=== PATIENT | female | born 1940 | race Caucasian/White ===

== ENCOUNTER → 2016-12-31 | Outpatient (CLI) | payer MEDICARE ==
--- NOTE | 2017-01-01 08:07 | MM ---
Reason for exam: screening (asymptomatic). Last mammogram was performed 1 year ago. History: Patient is postmenopausal. Family history of breast cancer in maternal cousin and breast cancer in maternal aunt. Benign excisional biopsy of the right breast, November 06, 1999. Physical Findings: A clinical breast exam by your physician is recommended on an annual basis and results should be correlated with mammographic findings. MG Screening Mammo w CAD Bilateral CC and MLO view(s) were taken. Prior study comparison: December 29, 2015, bilateral MG screening mammo w CAD. December 27, 2014, bilateral MG screening mammo w CAD. There are scattered fibroglandular densities. No significant changes when compared with prior studies. ASSESSMENT: Benign, BI-RAD 2 RECOMMENDATION: Routine screening mammogram of both breasts in 1 year.
== END | disposition home or self-care (01) ==
LOC: RADMAMWWP 10:11
PROVIDERS: ATTEND Family Medicine
DX: Z12.31 Encounter for screening mammogram for malignant neoplasm of breast (principal); Z80.3 Family history of malignant neoplasm of breast

== ENCOUNTER → 2017-09-30 | Outpatient (CLI) | payer MEDICARE ==
--- NOTE | 2017-09-30 11:12 | MR ---
EXAMINATION TYPE: MR knee LT wo con DATE OF EXAM: 09/30/2017 10:35 AM COMPARISON: NONE HISTORY: Left knee pain TECHNIQUE: Multiplanar, multisequence imaging of the left knee is performed. Patient motion limits ex amination. 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 Microtear is difficult to exclude given patient motion. Anterior horn is grossly intact. LATERAL MENISCUS: Anterior and posterior horns are intact without tear. CRUCIATE LIGAMENTS: The anterior and posterior cruciate ligaments are intact and unremarkable. COLLATERAL LIGAMENTS: The medial collateral ligament and lateral collateral ligament complex are intact and unremarkable. EXTENSOR MECHANISM: Visualized quadriceps and patellar tendons are intact. EFFUSION: No evidence for joint effusion. POPLITEAL CYST: Large septated Valencia's cyst measuring 6.9 cm in craniocaudal dimension by 2.2 cm AP d imension. TRICOMPARTMENT SPACES: Mild degenerative narrowing medial tibiofemoral joint space and patellofemoral joint space. Mild spur formation seen. CARTILAGE: The articular cartilage is maintained without abnormal signal or full-thickness defect. BONE MARROW SIGNAL: No focal abnormal marrow signal is appreciated: OTHER: No additional significant abnormality is appreciated. IMPRESSION: 1. Examination limited by patient motion and resultant artifact. 2. Large septated Valencia's cyst. 3. 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 Microtear is difficult to exclude.
== END | disposition home or self-care (01) ==
LOC: RADMRIMAIN 09:39
PROVIDERS: ATTEND Orthopaedic Surgery
DX: M23.322 Other meniscus derangements, posterior horn of medial meniscus, left knee (principal); M71.22 Synovial cyst of popliteal space [Baker], left knee

== ENCOUNTER 2017-11-14 08:05 | Day surgery (SDC) | payer MEDICARE ==
[2017-11-12 09:25] VITALS: BMI 42.8
--- NOTE | 2017-11-13 17:13 | HP ---
HISTORY AND PHYSICAL REASON FOR ADMISSION: Surgery scheduled for 11/14/2017. HISTORY OF PRESENT ILLNESS: Kathy Gil is a 77-year-old lady seen with progressive left knee pain. We discussed treatment options. She elected to proceed with left knee arthroscopy. Consent regarding procedure was obtained. Preoperative medical clearance was provided by Dr. Holbrook. PAST MEDICAL HISTORY: Hypertension, hyperlipidemia, gastroesophageal reflux disease. PAST SURGICAL HISTORY: Breast biopsy. DAILY MEDICATIONS: Bisoprolol, omeprazole, simvastatin, spironolactone. ALLERGIES: NOVOCAIN. SOCIAL HISTORY: The patient denies current tobacco use. PHYSICAL EXAMINATION: Evaluation of left shoulder extension 0 degrees, flexion 120 degrees. There is a mild effusion present. There is tenderness along the medial joint with a positive medial Padilla's. Ligaments are stable. Hip rotation without pain. Distal neurovascular exam is intact. RADIOGRAPHS: Left knee radiographs revealed moderate osteoarthritis, left knee MRI revealed an abnormal signal throughout the medial meniscus as well as a large Valencia cyst. IMPRESSION: 1. Internal derangement, left knee with medial meniscal tear. 2. Hypertension. 3. Hyperlipidemia. 4. Gastroesophageal reflux disease. PLAN: Left knee arthroscopy with partial meniscectomy and debridement. Surgery scheduled for 11/14/2017. MMODL / IJN: [id number] /
[~2017-11-14 08:05] MED LIST: MORPHINE SULFATE 4 MG/ML SYRINGE IV PRN; ONDANSETRON ODT 4 MG TAB PO ONE; ceFAZolin IN SWFI 2 GM/20 ML SYRINGE IVP ONE
[2017-11-14] MEDS: LACTATED RINGERS 1,000 ML IV SCH ×2 (08:32→08:57)
[2017-11-14] MEDS ORDERED: ONDANSETRON 4 MG/2 ML VIAL IVP ONE ×2 (08:44→10:20)
[2017-11-14] MEDS ORDERED: SUCCINYLCHOLINE CHLORIDE 100 MG/5 ML SYR IV ONE (08:54)
[2017-11-14] MEDS ORDERED: PROPOFOL 10 MG/ML 20 ML VIAL IV ONE (08:54)
[2017-11-14] MEDS ORDERED: MIDAZOLAM 2 MG/2 ML VIAL ONE (08:54)
[2017-11-14] MEDS ORDERED: fentaNYL (PF) 50 MCG/ML 2 ML AMP ONE (08:54)
[2017-11-14] MEDS ORDERED: GLYCOPYRROLATE 0.2 MG/ML 2 ML VIAL ONE (08:54)
[2017-11-14] MEDS ORDERED: BUPIVACAINE (PF) 0.25% 30 ML VIAL SQ ONE (09:27)
--- NOTE | 2017-11-14 09:57 | P.OP ---
Date of Procedure: 11/14/17 Preoperative Diagnosis: Internal derangement left knee Postoperative Diagnosis: 1. Tear medial and lateral meniscus left knee 2. Grade 2/3 chondromalacia medial femoral condyle left knee 3. Grade 2/3 chondromalacia patella left knee 4. Reactive synovitis medial and suprapatellar compartments left knee Procedure(s) Performed: 1. Arthroscopic partial medial and lateral meniscectomy left knee 2. Arthroscopic chondroplasty medial femoral condyle left knee 3. Arthroscopic chondroplasty patella left knee 4. Arthroscopic partial synovectomy medial and suprapatellar compartments left knee Anesthesia: CARRIA, local Surgeon: Jose Toure Estimated Blood Loss (ml): 9 Pathology: none sent Condition: stable Disposition: PACU Indications for Procedure: 69-year-old lady seen with progressive left knee pain. After options regarding treatment were discussed, she elected to proceed with arthroscopy. Operative Findings: see description of procedure Description of Procedure: Patient was taken to the operative suite. Patient underwent a general anesthetic by the department of anesthesia. Patient was given preoperative antibiotics. The left lower extremity was placed in a well-padded arthroscopic leg petit. The left leg was prepped and draped in the normal sterile orthopedic fashion. A lateral parapatellar and suprapatellar incision was made. Trochars were inserted. Arthroscopy was initiated. Suprapatellar pouch revealed diffuse thick reactive synovitis. The patellofemoral joint appeared to articulate congruently. There was grade 2/3 chondromalacia of the patella with some osteochondral tears present. The scope was guided into the medial gutter. No loose bodies or plica were identified. The scope was then guided into the medial compartment. A medial parapatellar incision was made. Trocar inserted followed by probe. There was a tear involving the posterior horn medial meniscus. There were grade 2/3 chondromalacia changes of the medial femoral condyle with osteochondral tears present. There was reactive synovitis anteriorly. I performed a partial medial meniscectomy down to stable tissue. I performed a chondroplasty of the medial femoral condyle down to stable tissue. I performed a partial synovectomy. The residual meniscus was probed and found to be stable. The residual osteochondral surface of the medial femoral condyle was stable. Scope and probe were then guided into the intercondylar notch. Cruciates were identified, probed and found to be stable. The scope and probe were then guided into lateral compartment. There was a tear involving the posterior horn as well as midbody lateral meniscus. There were grade 1 chondromalacia changes of the lateral compartment. I performed a partial lateral meniscectomy down to stable tissue. The residual meniscus was found to be stable. The scope was in guided back into the suprapatellar compartment. I introduced a motorized shaver into the super patellar compartment. I debrided piecemeal fragments of meniscus I encountered. I performed a chondroplasty of the patella. I performed a partial synovectomy. The shaver was removed. Instruments were now removed from the joint. The joint was infiltrated with .25% Marcaine. Steri-Strips were applied to the portal sites. Sterile dressings were applied. The patient was placed into a NIDA hose. No tourniquet was utilized. The patient was awakened, transferred to a bed and taken to recovery stable satisfactory condition.
[2017-11-14 10:06] VITALS: TEMP 96.8
[2017-11-14] MEDS ORDERED: fentaNYL (PF) 50 MCG/ML 2 ML AMP IVP ONE (10:36)
[2017-11-14 11:03] VITALS: RESP 18
[2017-11-14 11:29] VITALS: BP 141/63; PULSE 66
== END 2017-11-14 12:24 | disposition home or self-care (01) ==
LOC: OR 08:05
PROVIDERS: ATTEND Orthopaedic Surgery
DX: M23.322 Other meniscus derangements, posterior horn of medial meniscus, left knee (principal); M23.352 Other meniscus derangements, posterior horn of lateral meniscus, left knee; M65.862 Other synovitis and tenosynovitis, left lower leg; M85.80 Other specified disorders of bone density and structure, unspecified site; I10 Essential (primary) hypertension; E78.5 Hyperlipidemia, unspecified; K21.9 Gastro-esophageal reflux disease without esophagitis; M22.42 Chondromalacia patellae, left knee; Z79.899 Other long term (current) drug therapy; Z88.4 Allergy status to anesthetic agent
CPT/HCPCS: 84132; 29880; J2250; J2270; J2405; J3010; J0330; J2704; J0690

== ENCOUNTER → 2018-03-18 | Outpatient (CLI) | payer MEDICARE ==
--- NOTE | 2018-03-20 13:13 | MM ---
Reason for exam: screening (asymptomatic). Last mammogram was performed 1 year and 2 months ago. History: Patient is postmenopausal. Family history of breast cancer in maternal cousin and breast cancer in maternal aunt. Benign excisional biopsy of the right breast, November 06, 1999. Physical Findings: A clinical breast exam by your physician is recommended on an annual basis and results should be correlated with mammographic findings. MG Screening Mammo w CAD Bilateral CC and MLO view(s) were taken. Prior study comparison: December 31, 2016, bilateral MG screening mammo w CAD. December 29, 2015, bilateral MG screening mammo w CAD. There are scattered fibroglandular densities. No significant changes when compared with prior studies. ASSESSMENT: Negative, BI-RAD 1 RECOMMENDATION: Routine screening mammogram of both breasts in 1 year.
== END | disposition home or self-care (01) ==
LOC: RADMAMWWP 08:42
PROVIDERS: ATTEND Family Medicine
DX: Z12.31 Encounter for screening mammogram for malignant neoplasm of breast (principal)
CPT/HCPCS: 77067

== ENCOUNTER → 2019-03-19 | Outpatient (CLI) | payer MEDICARE ==
--- NOTE | 2019-03-19 10:28 | MM ---
Reason for exam: screening (asymptomatic). Last mammogram was performed 1 year ago. History: Patient is postmenopausal. Family history of breast cancer in maternal cousin and breast cancer in maternal aunt. Benign excisional biopsy of the right breast, November 06, 1999. Took hormonal contraceptives for 3 years. Physical Findings: A clinical breast exam by your physician is recommended on an annual basis and results should be correlated with mammographic findings. MG Screening Mammo w CAD Bilateral CC and MLO view(s) were taken. Prior study comparison: March 18, 2018, bilateral MG screening mammo w CAD. December 31, 2016, bilateral MG screening mammo w CAD. There are scattered fibroglandular densities. There are benign appearing round calcifications bilaterally. There is no discrete abnormality. ASSESSMENT: Benign, BI-RAD 2 RECOMMENDATION: Routine screening mammogram of both breasts in 1 year.
== END | disposition home or self-care (01) ==
LOC: RADMAMWWP 08:43
PROVIDERS: ATTEND Family Medicine
DX: Z12.31 Encounter for screening mammogram for malignant neoplasm of breast (principal)
CPT/HCPCS: 77067

== ENCOUNTER → 2020-04-29 | Outpatient (CLI) | payer MEDICARE ==
--- NOTE | 2020-05-03 08:11 | MM ---
Reason for exam: screening (asymptomatic). Last mammogram was performed 1 year and 1 month ago. History: Patient is postmenopausal. Family history of breast cancer in maternal cousin and breast cancer in maternal aunt. Benign excisional biopsy of the right breast, November 06, 1999. Took hormonal contraceptives for 3 years. Physical Findings: A clinical breast exam by your physician is recommended on an annual basis and results should be correlated with mammographic findings. MG Screening Mammo w CAD Bilateral CC and MLO view(s) were taken. Prior study comparison: March 19, 2019, bilateral MG screening mammo w CAD. March 18, 2018, bilateral MG screening mammo w CAD. There are scattered fibroglandular densities. No significant changes when compared with prior studies. ASSESSMENT: Negative, BI-RAD 1 RECOMMENDATION: Routine screening mammogram of both breasts in 1 year.
== END | disposition home or self-care (01) ==
LOC: RADMAMWWP 13:06
PROVIDERS: ATTEND Family Medicine
DX: Z12.31 Encounter for screening mammogram for malignant neoplasm of breast (principal)
CPT/HCPCS: 77067

== ENCOUNTER → 2021-06-02 | Outpatient (CLI) | payer MEDICARE ==
--- NOTE | 2021-06-05 12:46 | MM ---
Reason for exam: screening (asymptomatic). Last mammogram was performed 1 year and 1 month ago. History: Patient is postmenopausal. Family history of breast cancer in maternal cousin and breast cancer in maternal aunt. Benign excisional biopsy of the right breast, November 06, 1999. Took hormonal contraceptives for 3 years. Physical Findings: A clinical breast exam by your physician is recommended on an annual basis and results should be correlated with mammographic findings. MG Screening Mammo w CAD Bilateral CC and MLO view(s) were taken. Prior study comparison: April 29, 2020, bilateral MG screening mammo w CAD. March 19, 2019, bilateral MG screening mammo w CAD. The breast tissue is heterogeneously dense. This may lower the sensitivity of mammography. Stable benign calcifications. There is no discrete abnormality. No significant changes when compared with prior studies. ASSESSMENT: Benign, BI-RAD 2 RECOMMENDATION: Routine screening mammogram of both breasts in 1 year.
== END | disposition home or self-care (01) ==
LOC: RADMAMWWP 16:10
PROVIDERS: ATTEND Family Medicine
DX: Z12.31 Encounter for screening mammogram for malignant neoplasm of breast (principal); Z78.0 Asymptomatic menopausal state; Z80.3 Family history of malignant neoplasm of breast
CPT/HCPCS: 77067

== ENCOUNTER → 2021-08-18 | Outpatient (CLI) | payer MEDICARE | END | disposition home or self-care (01) | LOC: RADCTMAIN 16:42 | PROVIDERS: ATTEND Family Medicine | DX: R06.4 Hyperventilation (principal) | CPT/HCPCS: 82565; 84520 ==

== ENCOUNTER 2021-10-16 14:18 | Inpatient (IN) | payer MEDICARE ==
[2021-10-16] MEDS ORDERED: IPRATROPIUM-ALBUTEROL 3 ML NEB INHALATION STA (14:52)
--- NOTE | 2021-10-16 14:55 | ED ---
General Adult HPI - General Chief complaint: Shortness of Breath Stated complaint: Cough, Shortness of Breath Time Seen by Provider: 10/16/21 14:35 Source: patient, RN notes reviewed, old records reviewed Mode of arrival: ambulatory Limitations: no limitations - History of Present Illness Initial comments: This is an 81-year-old female who comes in complaining of having COVID and has been coughing and becoming more short of breath per patient states her symptoms started weeks ago she was tested positive last Saturday and the symptoms have progressed over the weekend. Patient denies any sputum production. Patient denies any chest pain or palpitations. Patient denies feeling sick. Patient denies any aches patient denies abdominal pain patient denies nausea vomiting diarrhea. Patient denies headache patient denies numbness weakness per patient denies any lightheadedness or dizziness. - Related Data Home Medications Medication Instructions Recorded Confirmed Bisoprolol-Hctz 10-6.25 mg [Ziac 1 tab PO DAILY 11/07/14 11/14/17 10-6.25 MG] Omeprazole [PriLOSEC] 40 mg PO DAILY 11/07/14 11/14/17 Simvastatin [Zocor] 40 mg PO DAILY 11/07/14 11/14/17 Spironolactone 1 tab PO DAILY 11/07/14 11/14/17 Ascorbic Acid [Vitamin C] 500 mg PO DAILY 11/12/17 11/14/17 Calcium Carbonate [Calcium] 1,200 mg PO DAILY 11/12/17 11/14/17 Cholecalciferol [Vitamin D3] 5,000 unit PO DAILY 11/12/17 11/14/17 Cyanocobalamin (Vitamin B-12) 1,000 mcg PO DAILY 11/12/17 11/14/17 [Vitamin B-12] Folic Acid 0.4 mg PO DAILY 11/12/17 11/14/17 Garlic 1 each PO DAILY 11/12/17 11/14/17 Healthy Eyes Vitamin 1 tab PO DAILY 11/12/17 11/14/17 Magnesium Oxide [Cervantes] 500 mg PO DAILY 11/12/17 11/14/17 [place]-3 Fatty Acids/Fish Oil [Fish 1 each PO DAILY 11/12/17 11/14/17 Oil 1,000 mg Softgel] Ranitidine HCl [Zantac] 300 mg PO HS 11/12/17 11/14/17 flaxseed oiL [[place]-3 Flaxseed Oil] 1,000 mg PO DAILY 11/12/17 11/14/17 Previous Rx's Medication Instructions Recorded traMADol HCl [Ultram] 50 mg PO Q6H PRN #20 tab 11/14/17 Allergies Allergy/AdvReac Type Severity Reaction Status Date / Time procaine [From Novocain] Allergy Anaphylaxis Verified 10/16/21 14:32 Review of Systems ROS Statement: Those systems with pertinent positive or pertinent negative responses have been documented in the HPI. ROS Other: All systems not noted in ROS Statement are negative. Past Medical History Past Medical History: GERD/Reflux, Hyperlipidemia, Hypertension Additional Past Medical History / Comment(s): Hx "racing heart" History of Any Multi-Drug Resistant Organisms: None Reported Past Surgical History: No Surgical Hx Reported Additional Past Surgical History / Comment(s): D&C, colonoscopies,rt breast biopsy Past Anesthesia/Blood Transfusion Reactions: Motion Sickness Past Psychological History: No Psychological Hx Reported Smoking Status: Never smoker Past Alcohol Use History: None Reported Past Drug Use History: None Reported - Past Family History Daughter(s) Family Medical History: Cancer Additional Family Medical History / Comment(s): leukemia General Exam - General Exam Comments Initial Comments: GENERAL: Patient is well-developed and well-nourished. Patient is nontoxic and well- hydrated and is in mild distress. ENT: Neck is soft and supple. No significant lymphadenopathy is noted. Oropharynx is clear. Moist mucous membranes. Neck has full range of motion without eliciting any pain. EYES: The sclera were anicteric and conjunctiva were pink and moist. Extraocular movements were intact and pupils were equal round and reactive to light. Eyelids were unremarkable. PULMONARY: Patient has expiratory wheezing. CARDIOVASCULAR: There is a regular rate and rhythm without any murmurs gallops or rubs. ABDOMEN: Soft and nontender with normal bowel sounds. No palpable organomegaly was noted. There is no palpable pulsatile mass. SKIN: Skin is clear with no lesions or rashes and otherwise unremarkable. NEUROLOGIC: Patient is alert and oriented x3. Cranial nerves II through XII are grossly intact. Motor and sensory are also intact. Normal speech, volume and content. Symmetrical smile. MUSCULOSKELETAL: Normal extremities with adequate strength and full range of motion. No lower extremity swelling or edema. No calf tenderness. LYMPHATICS: No significant lymphadenopathy is noted PSYCHIATRIC: Normal psychiatric evaluation. Limitations: no limitations Course Vital Signs 10/16/21 14:32 Temperature 97.1 F L Pulse Rate 119 H Respiratory 20 Rate Blood Pressure 160/68 O2 Sat by Pulse 90 L Oximetry Medical Decision Making - Medical Decision Making Patient has an infiltrate on x-ray consistent with pneumonia. Patient will get cultures done lactic acid and antibiotics will be started. I contacted [facility] hospitalist agreed to admit the patient admitted the patient wrote admitting orders. - Lab Data Result diagrams: 10/16/21 15:06 10/16/21 15:06 Lab Results 10/16/21 10/16/21 Range/Units 15:06 15:06 WBC 14.1 H (3.8-10.6) k/uL RBC 4.19 (3.80-5.40) m/uL Hgb 13.9 (11.4-16.0) gm/dL Hct 41.1 (34.0-46.0) % MCV 98.0 (80.0-100.0) fL MCH 33.2 (25.0-35.0) pg MCHC 33.8 (31.0-37.0) g/dL RDW 12.6 (11.5-15.5) % Plt Count 288 (150-450) k/uL MPV 9.0 Neutrophils % 88 % Lymphocytes % 8 % Monocytes % 3 % Eosinophils % 0 % Basophils % 0 % Neutrophils # 12.4 H (1.3-7.7) k/uL Lymphocytes # 1.1 (1.0-4.8) k/uL Monocytes # 0.4 (0-1.0) k/uL Eosinophils # 0.0 (0-0.7) k/uL Basophils # 0.0 (0-0.2) k/uL Sodium 129 L (137-145) mmol/L Potassium 4.8 (3.5-5.1) mmol/L Chloride 95 L (98-107) mmol/L Carbon Dioxide 23 (22-30) mmol/L Anion Gap 11 mmol/L BUN 24 H (7-17) mg/dL Creatinine 1.17 H (0.52-1.04) mg/dL Est GFR (CKD-EPI)AfAm 50 (>60 ml/min/1.73 sqM) Est GFR (CKD-EPI)NonAf 44 (>60 ml/min/1.73 sqM) Glucose 152 H (74-99) mg/dL Calcium 9.8 (8.4-10.2) mg/dL Total Bilirubin 1.0 (0.2-1.3) mg/dL AST 52 H (14-36) U/L ALT 49 H (4-34) U/L Alkaline Phosphatase 162 H (38-126) U/L Total Protein 7.7 (6.3-8.2) g/dL Albumin 3.9 (3.5-5.0) g/dL Disposition Clinical Impression: Pneumonia, Hyponatremia, COVID Disposition: ADMITTED IP TO THIS HOSP Referrals: None,Stated [Primary Care Provider] - 1-2 days Time of Disposition: 15:45
[2021-10-16 15:14] LABS: Basophils % (A) 0 %; Eosinophils % (A) 0 %; HCT 41.1 % (34.0-46.0); HGB 13.9 gm/dL (11.4-16.0); Lymphocytes # (A) 1.1 k/uL (1.0-4.8); Lymphocytes % (A) 8 %; MCH 33.2 pg (25.0-35.0); MCHC 33.8 g/dL (31.0-37.0); Monocytes # (A) 0.4 k/uL (0-1.0); Monocytes % (A) 3 %; Neutrophils # (A) 12.4 k/uL (1.3-7.7); Neutrophils % (A) 88 %; Platelet Count 288 k/uL (150-450); RBC 4.19 m/uL (3.80-5.40); RDW 12.6 % (11.5-15.5); WBC 14.1 k/uL (3.8-10.6)
[2021-10-16] MEDS ORDERED: dexAMETHasone 2 MG TAB PO STA (15:14)
[2021-10-16 15:26] LABS: Albumin 3.9 g/dL (3.5-5.0); Calcium 9.8 mg/dL (8.4-10.2); Potassium 4.8 mmol/L (3.5-5.1); Total Protein 7.7 g/dL (6.3-8.2)
[2021-10-16] MEDS ORDERED: ALBUTEROL HFA INHALER INHALATION STA (15:37)
--- NOTE | 2021-10-16 15:37 | XR ---
EXAMINATION TYPE: XR chest 2V DATE OF EXAM: 10/16/2021 COMPARISON: 11/07/2014 HISTORY: Shortness of breath TECHNIQUE: Frontal and lateral views of the chest are obtained. FINDINGS: Scattered senescent parenchymal changes noted. Hyperinflation compatible with COPD. Right lower lobe patchy density may reflect developing infiltrate. Correlate clinically and progress studies are recommended. Heart size is stable. Mediastinal structures are stable and grossly unremarkable. No evidence for hilar prominence. Degenerative changes dorsal spine. IMPRESSION: 1. Right lower lobe patchy density may reflect developing infiltrate. Correlate clinically and progre ss studies are recommended.
[2021-10-16] MEDS ORDERED: SODIUM CHLORIDE 0.9% 1,000 ML IV ONE (15:45)
[2021-10-16] MEDS ORDERED: PNEUMONIA PROTOCOL UTILIZED 1 EACH MISC PO PRN (15:46)
[2021-10-16] MEDS ORDERED: AZITHROMYCIN 500 MG in SODIUM CHLORIDE 0.9% 250 ML IVPB STA (15:46)
--- NOTE | 2021-10-17 08:28 | XR ---
EXAMINATION TYPE: XR chest 2V DATE OF EXAM: 10/17/2021 COMPARISON: 10/16/2021 TECHNIQUE: PA and lateral views submitted. HISTORY: Follow-up pneumonia, cough FINDINGS: Improving right lower lobe area drainage with additional subsegmental infiltrate in the left lung bas e. Heart enlarged and there is underlying COPD. No pneumothorax. Diffuse osteopenia. Degenerative argelia nge of the spine. Arthropathy shoulders. Atherosclerotic change aorta. IMPRESSION: 1. Bilateral lower lobe infiltrate with slight improvement on the right. 2. COPD.
[2021-10-17] MEDS ORDERED: ALBUTEROL NEBULIZED 2.5 MG/3 ML INHALATION PRN (09:46)
[2021-10-17] MEDS ORDERED: PANTOPRAZOLE 40 MG/10 ML VIAL IVP SCH (10:00)
[2021-10-17] MEDS ORDERED: ENOXAPARIN 40 MG/0.4 ML SYRINGE SQ SCH (10:00)
[2021-10-17] MEDS: AZITHROMYCIN 500 MG TAB PO SCH (10:16)
--- NOTE | 2021-10-17 10:26 | CT ---
EXAMINATION TYPE: CT chest wo con DATE OF EXAM: 10/17/2021 INDICATION: RLL atelectasis vs. Pneumonia CT DLP: 382.9 mGy.cm Automated Exposure Control for Dose Reduction was Utilized. TECHNIQUE AND CONTRAST: CT scan of the chest without IV contrast administration. COMPARISON: CT dated 08/28/2021 FINDINGS: Newly seen thick atelectasis/consolidation in the left lower lobe with air bronchogram within, with s maller atelectasis in the right lower lobe. Associated loss of volume of the left lower lobe. This co uld be related to acute infection/pneumonia or recurrent aspiration however underlying lesion can't b e excluded. Follow-up to complete resolution is advised. Grossly unremarkable remainder of the lungs. Patent trachea and main bronchi. No pleural or pericardi al effusion. Cardiomegaly with biatrial enlargement, please correlate with echocardiographic results. Scattered arterial and coronary atherosclerotic calcifications. No pathologically enlarged lymph nod es in the chest. Dilated ascending aorta measuring 3.6 cm. The pulmonary trunk measures 3 cm. Atrophic pancreas. Bilat eral perinephric fluid, nonspecific. Degenerative changes of the thoracic and upper lumbar spine. L1 vertebral body hemangioma. IMPRESSION: Bilateral lower lobe thick atelectasis/consolidation more on the left side as described above. They c ould be related to pneumonia or recurrent aspiration however underlying lesion cannot be excluded, pl ease correlate clinically. Follow-up to complete resolution is advised in 6-8 weeks. Other incidental findings as described above.
[2021-10-17] MEDS ORDERED: ENOXAPARIN 30 MG/0.3 ML SYRINGE SQ SCH (10:30)
[2021-10-17 10:48] LABS: Basophils % (A) 0 %; Eosinophils % (A) 0 %; HCT 41.4 % (34.0-46.0); HGB 13.4 gm/dL (11.4-16.0); Lymphocytes # (A) 1.7 k/uL (1.0-4.8); Lymphocytes % (A) 10 %; MCH 32.6 pg (25.0-35.0); MCHC 32.3 g/dL (31.0-37.0); Mean Platelet Volume 9.7; Monocytes # (A) 0.7 k/uL (0-1.0); Monocytes % (A) 4 %; Neutrophils # (A) 14.3 k/uL (1.3-7.7); Neutrophils % (A) 85 %; Platelet Count 266 k/uL (150-450); RDW 12.2 % (11.5-15.5); WBC 16.8 k/uL (3.8-10.6)
[2021-10-17] MEDS ORDERED: ALBUTEROL HFA INHALER INHALATION PRN (10:53)
[2021-10-17 11:05] LABS: ALT 43 U/L (4-34); AST 41 U/L (14-36); African American GFR (CKD) 58 (>60 ml/min/1.73 sqM); Albumin 3.5 g/dL (3.5-5.0); Alkaline Phosphatase 141 U/L (38-126); Anion Gap 11 mmol/L; Blood Urea Nitrogen 23 mg/dL (7-17); Calcium 9.7 mg/dL (8.4-10.2); Carbon Dioxide 25 mmol/L (22-30); Chloride 101 mmol/L (98-107); Globulin 3.5 g/dL; Glucose 163 mg/dL (74-99); Non-African American GFR(CKD) 50 (>60 ml/min/1.73 sqM); Potassium 4.5 mmol/L (3.5-5.1); Sodium 137 mmol/L (137-145); Total Bilirubin 0.6 mg/dL (0.2-1.3)
--- NOTE | 2021-10-17 11:39 | P.CNPUL ---
History of Present Illness Consult date: 10/17/21 Requesting physician: Gamaliel Padilla Reason for consult: dyspnea, abnormal CXR/CT Chief complaint: Shortness of breath, cough History of present illness: This is an 81-year-old female patient with a known history of hypertension, hyperlipidemia and gastroesophageal reflux disease. Nonsmoker. One week ago ago the patient developed increasing shortness of breath, cough congestion and reportedly tested positive for COVID-19 at a outpatient clinic on 10/11/2021. She was initiated on prednisone and vitamin supplements. Today her symptoms worsened and she presented here to the emergency room for the same. She denied any nausea, vomiting or diarrhea. No dizziness or lightheadedness. No sputum production. No fever or chills. No body aches. Chest x-ray revealed bilateral lower lobe infiltrates and evidence of COPD. Computed tomography scan of the chest revealed bilateral lower lobe chronic atelectasis/consolidation more so on the left. Possibly related to pneumonia or recurrent aspiration however and underlying lesion cannot be excluded. White count 16.8. Hemoglobin 13.4. Sodi um 137. Potassium 4.5. Bicarb 25. BUN 23. Creatinine 1.04. Glucose 163. AST 41. ALT 43. Pro-calcitonin 0.09. [place] virus by PCR not detected here. She's been initiated on ceftriaxone and azithromycin along with vitamin supplements and Lovenox. Review of Systems REVIEW OF SYSTEMS: CONSTITUTIONAL: Denies any recent significant weight loss or weight gain. EYES: Denies change in vision. EARS, NOSE, MOUTH, THROAT: Denies headaches, denies sore throat. CARDIOVASCULAR: Denies chest pain, palpitations or syncopal episodes. RESPIRATORY: Positive for shortness of breath, cough, congestion no hemoptysis. GASTROINTESTINAL: Denies change in appetite, denies abdominal pain GENITOURINARY: Denies hematuria, denies infections. MUSKULOSKELETAL: Denies pain, denies swelling. INTEGUMENTARY: Denies rash, denies eczema. NEUROLOGICAL: Denies recent memory loss, no recent seizure activity. PSYCHIATRIC: Denies anxiety, denies depression. HEMATOLOGIC/LYMPHATIC: Denies anemia, denies enlarged lymph nodes. Past Medical History Past Medical History: GERD/Reflux, Hyperlipidemia, Hypertension Additional Past Medical History / Comment(s): Hx "racing heart" History of Any Multi-Drug Resistant Organisms: None Reported Past Surgical History: No Surgical Hx Reported Additional Past Surgical History / Comment(s): D&C, colonoscopies,rt breast biopsy Past Anesthesia/Blood Transfusion Reactions: Motion Sickness Smoking Status: Never smoker - Past Family History Daughter(s) Family Medical History: Cancer Additional Family Medical History / Comment(s): leukemia Medications and Allergies Home Medications Medication Instructions Recorded Confirmed Type Omeprazole [PriLOSEC] 40 mg PO DAILY 11/07/14 10/16/21 History Simvastatin [Zocor] 40 mg PO DAILY 11/07/14 10/16/21 History Spironolactone 50 mg PO DAILY 11/07/14 10/16/21 History Ascorbic Acid [Vitamin C] 500 mg PO DAILY 11/12/17 10/16/21 History Cholecalciferol [Vitamin D3] 1,000 unit PO DAILY 11/12/17 10/16/21 History Cyanocobalamin (Vitamin B-12) 1,000 mcg PO DAILY 11/12/17 10/16/21 History [Vitamin B-12] Folic Acid 0.4 mg PO DAILY 11/12/17 10/16/21 History Garlic 1 tab PO DAILY 11/12/17 10/16/21 History Healthy Eyes Vitamin 1 tab PO DAILY 11/12/17 10/16/21 History Magnesium Oxide [Cervantes] 500 mg PO DAILY 11/12/17 10/16/21 History [place]-3 Fatty Acids/Fish Oil [Fish 1 cap PO DAILY 11/12/17 10/16/21 History Oil 1,000 mg Softgel] flaxseed oiL [[place]-3 Flaxseed Oil] 1,000 mg PO DAILY 11/12/17 10/16/21 History Albuterol Sulfate [Proventil Hfa] 1 puff INHALATION RT-DAILY PRN 10/16/21 10/16/21 History Bisoprolol Fumarate [Zebeta] 10 mg PO BID 10/16/21 10/16/21 History Calcium Carbonate [Tums] 500 mg PO DAILY 10/16/21 10/16/21 History Montelukast [Singulair] 10 mg PO DAILY 10/16/21 10/16/21 History Vitamin C/Biotin [Hair, Skin and 1 tab PO DAILY 10/16/21 10/16/21 History Nails Chew] predniSONE [Deltasone] 20 mg PO DAILY 10/16/21 10/16/21 History Allergies Allergy/AdvReac Type Severity Reaction Status Date / Time procaine [From Novocain] Allergy Anaphylaxis Verified 10/16/21 16:31 Physical Exam Vitals: Vital Signs Temp Pulse Pulse Resp BP BP Pulse Ox 10/17/21 10:00 72 18 120/92 98 10/17/21 06:18 98.3 F 93 20 128/64 95 10/16/21 19:29 98.2 F 94 20 120/78 95 10/16/21 14:32 97.1 F L 119 H 20 160/68 90 L Intake and Output 10/16/21 10/17/21 10/17/21 22:59 06:59 14:59 Intake Total 240 Balance 240 Intake: Oral 240 Other: Voiding Method Toilet # Voids 1 Weight 81.193 kg GENERAL EXAM: Alert, pleasant 81-year-old female patient, on room air, comfortable in no apparent distress. HEAD: Normocephalic. EYES: Normal reaction of pupils, equal size. NOSE: Clear with pink turbinates. THROAT: No erythema or exudates. NECK: No masses, no JVD. CHEST: No chest wall deformity. LUNGS: Equal air entry with bilateral scattered rhonchi more so on the left. CVS: S1 and S2 normal with no audible murmur, regular rhythm. ABDOMEN: No hepatosplenomegaly, normal bowel sounds, no guarding or rigidity. SPINE: No scoliosis or deformity SKIN: No rashes CENTRAL NERVOUS SYSTEM: No focal deficits, tone is normal in all 4 extremities. EXTREMITIES: There is no peripheral edema. No clubbing, no cyanosis. Peripheral pulses are intact. Results - Laboratory Findings CBC and BMP: 10/17/21 10:09 10/17/21 10:09 Abnormal lab findings: Abnormal Labs 10/16/21 10/16/21 10/17/21 15:06 15:06 10:09 WBC 14.1 H 16.8 H MCV 101.0 H Neutrophils # 12.4 H 14.3 H Sodium 129 L Chloride 95 L BUN 24 H Creatinine 1.17 H Glucose 152 H AST 52 H ALT 49 H Alkaline Phosphatase 162 H 10/17/21 10:09 WBC MCV Neutrophils # Sodium Chloride BUN 23 H Creatinine Glucose 163 H AST 41 H ALT 43 H Alkaline Phosphatase 141 H - Diagnostic Findings Chest x-ray: image reviewed CT scan - chest: image reviewed Assessment and Plan Assessment: 1 Dyspnea secondary to suspected acute community-acquired pneumonia more so on the left lung base. Neoplasm cannot be totally excluded. Possible previous COVID-19 infection. COVID-19 by PCR negative here. 2 Leukocytosis secondary to above 3 Hyponatremia, recovered currently 137 4 Acute renal failure, recovered current creatinine 1.05 5 Mild transaminitis 6 Hypertension 7 Hyperlipidemia 8 Gastroesophageal reflux disease Plan: The patient was seen and evaluated Chest x-ray, CAT scans and labs reviewed Suspect underlying pneumonia Continue ceftriaxone and azithromycin Continue bronchodilators, IV Solu-Medrol Lovenox for DVT prophylaxis Check inflammatory markers We will continue to follow and make further recommendations based on her clinical status I have personally seen and examined the patient, performed the documentation and the assessment and plan as written. Number of minutes spent on the visit: 20.
[2021-10-17] MEDS: ASCORBIC ACID 500 MG TAB PO SCH (11:42)
[2021-10-17] MEDS: CYANOCOBALAMIN 500 MCG TAB PO SCH (11:42)
[2021-10-17] MEDS: CHOLECALCIFEROL 25 MCG (1000 IU) TABLET PO SCH (11:42)
[2021-10-17] MEDS: MONTELUKAST 10 MG TAB PO SCH (11:42)
[2021-10-17] MEDS: FOLIC ACID 1 MG TAB PO SCH (11:43)
[2021-10-17 12:10] LABS: C Reactive Protein 4.8 mg/dL (<1.0)
[2021-10-17] MEDS ORDERED: HEPARIN SODIUM 1,000 UN/ML (10ML VL) IV PRN (14:02)
[2021-10-17] MEDS ORDERED: HEPARIN SODIUM 1,000 UN/ML (10ML VL) IV ONE (14:02)
--- NOTE | 2021-10-17 14:14 | P.HPIM ---
History of Present Illness H&P Date: 10/17/21 This is an 81-year-old female presents to the emergency room with complaints of increased shortness of breath. is at the bedside. Patient has symptoms ongoing for the last couple weeks, she was tested positive for Covid last Saturday with interval progression of symptoms. Patient was started on an oral steroid taper with last doing being today from the walk in clinic. Chest x-ray on admission shows right lower lobe patchy density may reflect developing infiltrate. Follow-up chest x-ray in the morning shows slight improvement of infiltrate, COPD. Patient followed with Dr Kimberlee Holbrook in the primary office, states she has not been in since August and at that time states she had a chest xray and CT done which showed a nodule which there has been no further work up. Patient states she is a never smoker, no alcohol use. She denies history of heart failure, states she does have a heart arrythmia, denies history of atrial fibrillation. Patient is somewhat of a poor historian. Patient is currently working in the school setting. White count 14.1 admission, sodium 129, BUN 24, creatinine 1.17, glucose 152, elevated liver enzymes. Covid NOT detected this admission. Chronic medical conditions include GERD, hyperlipidemia, hypertension, racing heart. Patient is a never smoker. Patient currently afebrile, heart rate is slightly elevated at 93 with an episode of tachycardia 118, 95% on room air. Patient was admitted to the hospital with consults placed to pulmonary services. Patient received a 1 Liter fluid bolus, received a dose of IV azithromycin, IV Rocephin, also one-time dose of oral dexamethasone. -EKG requested which shows atrial fibrillation. Home medication includes bisoprolol, not on any anticoagulation. Consultation requested to cardiology for further evaluation. -Chest CT completed today shows bilateral lower lobe atelectasis/consolidation when the left side as described above. This could be related to pneumonia or recent aspiration of her underlying lesion cannot be excluded. Recommend follow-up advised in 6-8 weeks. REVIEW OF SYSTEMS: CONSTITUTIONAL: No fever, no malaise, reports fatigue. HEENT: No recent visual problems or hearing problems. Denied any sore throat. CARDIOVASCULAR: No chest pain, orthopnea, PND, no palpitations, no syncope. PULMONARY: Reports shortness of breath, reports occasional cough with white to yellow sputum. GASTROINTESTINAL: No diarrhea, no nausea, no vomiting, no abdominal pain. NEUROLOGICAL: No headaches, no weakness, no numbness. HEMATOLOGICAL: Denies any bleeding or petechiae. GENITOURINARY: Denies any burning micturition, frequency, or urgency. MUSCULOSKELETAL/RHEUMATOLOGICAL: Denies any joint pain, swelling, or any muscle pain. ENDOCRINE: Denies any polyuria or polydipsia. The rest of the 14-point review of systems is negative. PHYSICAL EXAMINATION: GENERAL: The patient is alert and oriented x3, not in any acute distress. Well developed, well nourished. HEENT: Pupils are round and equally reacting to light. EOMI. No scleral icterus. No conjunctival pallor. Normocephalic, atraumatic. No pharyngeal erythema. No thyromegaly. CARDIOVASCULAR: S1 and S2 present. Irregular rate and rhythm, tachycardic. PULMONARY: Chest is clear to auscultation, no wheezing or crackles. ABDOMEN: Soft, nontender, nondistended, normoactive bowel sounds. No palpable organomegaly. MUSCULOSKELETAL: No joint swelling or deformity. EXTREMITIES: No cyanosis, clubbing, or pedal edema. NEUROLOGICAL: Gross neurological examination did not reveal any focal deficits. SKIN: No rashes. Assessment and plan Assessment 1 Shortness of breath with possible right lower lobe pneumonia. Patient with self reported recent Covid infection, COVID currently showing negative this admission. She has been on an oral steroid taper outpatient and vitamins. Procalcitonin is negative at 0.09, chest CT showing atelectasis/consolidation and cannot exclude neoplasm. Patient reports history of known nodule from CT completed in August of this year. -Atrial fibrillation with rapid ventricular rate, possibly chronic/paroxysmal, not on anticoagulation outpatient. Patient reports history of "arrhythmia", denies atrial fibrillation. This could be contributing to increased dyspnea -Leukoyctosis secondary to above -Hyponatremia from poor oral intake -Acute kidney injury mostly prerenal due to decreased oral intake -Hyperglycemia, most likely steroid induced -Elevated liver enzymes -Hypertension -History of hyperlipidemia -History of gastroesophageal -Never smoker -Obesity GI Prophylaxis DVT Prophylaxis Plan IV steroids started today Continue antibiotics as per pulmonary Blood cultures pending Repeat CMP, trend liver enzymes Inflammatory markers Novolog for hyperglycemia Pulmonary consult, Cardiology consult PT/OT consultation Continue all other supportive care The impression and plan of care has been dictated by Honey Cervantes, Nurse Practitioner as directed. Dr. Kal MD I have performed a history and physical examination and medical decision making of this patient, discussed the same with the dictator, and agree with the dictators assessment and plan as written, documented as a scribe. Based on total visit time, I have performed more than 50% of this visit. Past Medical History Past Medical History: GERD/Reflux, Hyperlipidemia, Hypertension Additional Past Medical History / Comment(s): Hx "racing heart" History of Any Multi-Drug Resistant Organisms: None Reported Past Surgical History: No Surgical Hx Reported Additional Past Surgical History / Comment(s): D&C, colonoscopies,rt breast biopsy Past Anesthesia/Blood Transfusion Reactions: Motion Sickness Smoking Status: Never smoker - Past Family History Daughter(s) Family Medical History: Cancer Additional Family Medical History / Comment(s): leukemia Medications and Allergies Home Medications Medication Instructions Recorded Confirmed Type Omeprazole [PriLOSEC] 40 mg PO DAILY 11/07/14 10/16/21 History Simvastatin [Zocor] 40 mg PO DAILY 11/07/14 10/16/21 History Spironolactone 50 mg PO DAILY 11/07/14 10/16/21 History Ascorbic Acid [Vitamin C] 500 mg PO DAILY 11/12/17 10/16/21 History Cholecalciferol [Vitamin D3] 1,000 unit PO DAILY 11/12/17 10/16/21 History Cyanocobalamin (Vitamin B-12) 1,000 mcg PO DAILY 11/12/17 10/16/21 History [Vitamin B-12] Folic Acid 0.4 mg PO DAILY 11/12/17 10/16/21 History Garlic 1 tab PO DAILY 11/12/17 10/16/21 History Healthy Eyes Vitamin 1 tab PO DAILY 11/12/17 10/16/21 History Magnesium Oxide [Cervantes] 500 mg PO DAILY 11/12/17 10/16/21 History [place]-3 Fatty Acids/Fish Oil [Fish 1 cap PO DAILY 11/12/17 10/16/21 History Oil 1,000 mg Softgel] flaxseed oiL [[place]-3 Flaxseed Oil] 1,000 mg PO DAILY 11/12/17 10/16/21 History Albuterol Sulfate [Proventil Hfa] 1 puff INHALATION RT-DAILY PRN 10/16/21 10/16/21 History Bisoprolol Fumarate [Zebeta] 10 mg PO BID 10/16/21 10/16/21 History Calcium Carbonate [Tums] 500 mg PO DAILY 10/16/21 10/16/21 History Montelukast [Singulair] 10 mg PO DAILY 10/16/21 10/16/21 History Vitamin C/Biotin [Hair, Skin and 1 tab PO DAILY 10/16/21 10/16/21 History Nails Chew] predniSONE [Deltasone] 20 mg PO DAILY 10/16/21 10/16/21 History Allergies Allergy/AdvReac Type Severity Reaction Status Date / Time procaine [From Novocain] Allergy Anaphylaxis Verified 10/16/21 16:31 Physical Exam Vitals: Vital Signs Temp Pulse Pulse Resp BP BP Pulse Ox 10/17/21 06:18 98.3 F 93 20 128/64 95 10/16/21 19:29 98.2 F 94 20 120/78 95 10/16/21 14:32 97.1 F L 119 H 20 160/68 90 L Intake and Output 10/16/21 10/17/21 10/17/21 22:59 06:59 14:59 Intake Total 240 Balance 240 Intake: Oral 240 Other: Voiding Method Toilet # Voids 1 Weight 81.193 kg Results CBC & Chem 7: 10/17/21 10:09 10/17/21 10:09 Labs: Abnormal Lab Results - Last 24 Hours (Table) 10/16/21 10/16/21 Range/Units 15:06 15:06 WBC 14.1 H (3.8-10.6) k/uL Neutrophils # 12.4 H (1.3-7.7) k/uL Sodium 129 L (137-145) mmol/L Chloride 95 L (98-107) mmol/L BUN 24 H (7-17) mg/dL Creatinine 1.17 H (0.52-1.04) mg/dL Glucose 152 H (74-99) mg/dL AST 52 H (14-36) U/L ALT 49 H (4-34) U/L Alkaline Phosphatase 162 H (38-126) U/L Thrombosis Risk Factor Assmnt - Choose All That Apply Any of the Below Risk Factors Present?: Yes Each Risk Factor Represents 3 Points: Age 75 years or older Thrombosis Risk Factor Assessment Total Risk Factor Score: 3 Thrombosis Risk Factor Assessment Level: Moderate Risk Assessment and Plan Time with Patient: Greater than 30
[2021-10-17] MEDS ORDERED: HEPARIN SOD,PORK IN 0.45% NACL 25,000 UNIT in 0.45% NACL 1 250ML.BAG IV SCH (14:15)
[2021-10-17 16:45] LABS: INR 1.2 (<1.2); Partial Thromboplastin Time 88.7 sec (22.0-30.0); Prothrombin Time 12.5 sec (9.0-12.0)
[2021-10-17 16:49] LABS: Basophils % (A) 0 %; Eosinophils % (A) 0 %; HCT 40.4 % (34.0-46.0); HGB 13.2 gm/dL (11.4-16.0); Lymphocytes % (A) 12 %; MCH 32.7 pg (25.0-35.0); MCHC 32.7 g/dL (31.0-37.0); MCV 100.2 fL (80.0-100.0); Mean Platelet Volume 9.5; Monocytes # (A) 0.7 k/uL (0-1.0); Monocytes % (A) 4 %; Neutrophils # (A) 14.2 k/uL (1.3-7.7); Neutrophils % (A) 82 %; Platelet Count 297 k/uL (150-450); RBC 4.03 m/uL (3.80-5.40); RDW 12.7 % (11.5-15.5); WBC 17.3 k/uL (3.8-10.6)
[2021-10-17] MEDS: methylPREDNISolone SOD SUCCI 40 MG/ML 1 ML VIAL IV SCH (16:52)
[2021-10-17] MEDS: INSULIN ASPART (NovoLOG) 100 UNIT/ML VIAL SQ SCH ×2 (16:59→21:17)
[2021-10-17 17:00] LABS: Glucose,Whole Blood 108 mg/dL (75-99)
--- NOTE | 2021-10-17 18:00 | ECHOF ---
Referral Reason:lv function MEASUREMENTS -------- HEIGHT: 149.9 cm WEIGHT: 81.2 kg BP: 137/73 RVIDd: 3.0 cm (< 3.3) IVSd: 1.1 cm (0.6 - 1.1) LVIDd: 3.5 cm (3.9 - 5.3) LVPWd: 1.1 cm (0.6 - 1.1) IVSs: 1.4 cm LVIDs: 3.2 cm LVPWs: 1.2 cm LA Diam: 2.8 cm (2.7 - 3.8) LAESV Index (A-L): 26.10 ml/m Ao Diam: 2.5 cm (2.0 - 3.7) AV Cusp: 1.4 cm (1.5 - 2.6) MV EXCURSION: 14.230 mm (> 18.000) MV EF SLOPE: 69 mm/s (70 - 150) EPSS: 0.4 cm RAP: 5.00 mmHg RVSP: 34.93 mmHg FINDINGS -------- Atrial fibrillation. This was a technically adequate study. The left ventricular size is normal. There is borderline concentric left ventricular hypertrophy. Overall left ventricular systolic function is low-normal with, an EF between 50 - 55 %. The right ventricle is normal in size. Normal LA size by volume 22+/-6 ml/m2. The right atrium is normal in size. Interatrial and interventricular septum intact. There is mild aortic valve sclerosis. The mitral valve leaflets are mildly thickened. Mild mitral annular calcification present. Mild m itral regurgitation is present. Mild tricuspid regurgitation present. There is mild pulmonary hypertension. The right ventricular systolic pressure, as measured by Doppler, is 34.93mmHg. The pulmonic valve was not well visualized. The aortic root size is normal. Normal inferior vena cava with normal inspiratory collapse consistent with estimated right atrial pre ssure of 5 mmHg. There is no pericardial effusion. CONCLUSIONS -------- 1. The left ventricular size is normal. 2. There is borderline concentric left ventricular hypertrophy. 3. Overall left ventricular systolic function is low-normal with, an EF between 50 - 55 %. 4. There is mild aortic valve sclerosis. 5. The mitral valve leaflets are mildly thickened. 6. Mild mitral annular calcification present. 7. Mild mitral regurgitation is present. 8. Mild tricuspid regurgitation present. 9. There is mild pulmonary hypertension. 10. The right ventricular systolic pressure, as measured by Doppler, is 34.93mmHg. 11. There is no pericardial effusion. DEDICATED TRUCK DRIVER: Deya Garrett RDCS
[2021-10-17] MEDS ORDERED: METOPROLOL TARTRATE 25 MG TAB PO SCH (21:00)
[2021-10-17 21:18] LABS: Glucose,Whole Blood 185 mg/dL (75-99)
[2021-10-18] MEDS: methylPREDNISolone SOD SUCCI 40 MG/ML 1 ML VIAL IV SCH ×2 (01:39→17:45)
[2021-10-18 07:17] LABS: INR 1.1 (<1.2)
[2021-10-18 07:18] LABS: Partial Thromboplastin Time 61.2 sec (22.0-30.0)
[2021-10-18] MEDS: INSULIN ASPART (NovoLOG) 100 UNIT/ML VIAL SQ SCH ×4 (08:48→21:15)
[2021-10-18 09:06] LABS: Glucose,Whole Blood 147 mg/dL (75-99)
[2021-10-18 09:16] LABS: Basophils # (A) 0.02 X 10*3/uL (0.00-0.10); Basophils % (A) 0.1 %; Eosinophils # (A) 0 X 10*3/uL (0.04-0.35); Eosinophils % (A) 0 %; HGB 11.5 g/dL (12.0-15.0); Immature Grans, Automated 0.8 %; Lymphocytes # (A) 1.46 X 10*3/uL (0.90-5.00); Lymphocytes % (A) 9.3 %; MCH 31.8 pg (27.0-32.0); MCHC 32.9 g/dL (32.0-37.0); MCV 96.7 fL (80.0-97.0); Mean Platelet Volume 12.4 fL (9.5-12.2); Monocytes # (A) 0.52 X 10*3/uL (0.20-1.00); Monocytes % (A) 3.3 %; NRBC Per 100 WBC 0 /100 WBCS (0.0-0.0); Neutrophils # (A) 13.64 X 10*3/uL (1.80-7.70); Neutrophils % (A) 86.5 %; Platelet Count 261 X 10*3/uL (140-440); RBC 3.62 X 10*6/uL (4.10-5.20); RDW 12.6 % (11.5-14.5); WBC 15.76 X 10*3/uL (4.50-10.00)
[2021-10-18 09:39] LABS: African American GFR (CKD) 48.7 (60.0-200.0); Albumin 3.3 g/dL (3.8-4.9); Albumin/Globulin Ratio 1.22 (1.60-3.17); Anion Gap 11.6 mmol/L (10.00-18.00); BUN/Creat Ratio 22.17 Ratio (12.00-20.00); Blood Urea Nitrogen 26.6 mg/dL (9.0-27.0); Calcium 9.5 mg/dL (8.7-10.3); Carbon Dioxide 21.4 mmol/L (20.0-27.5); Globulin 2.7 g/dL (1.6-3.3); Non-African American GFR(CKD) 42.1 (60.0-200.0); Potassium 4.8 mmol/L (3.5-5.5); Total Bilirubin 0.3 mg/dL (0.30-1.20)
[2021-10-18] MEDS: LOSARTAN 25 MG TAB PO SCH (10:59)
[2021-10-18] MEDS: AZITHROMYCIN 500 MG TAB PO SCH (10:59)
[2021-10-18] MEDS: VERAPAMIL 40 MG TAB PO SCH ×2 (10:59→21:15)
[2021-10-18] MEDS: METOPROLOL TARTRATE 50 MG TAB PO SCH ×2 (10:59→20:24)
[2021-10-18] MEDS: PANTOPRAZOLE 40 MG TABLET PO SCH (11:00)
[2021-10-18] MEDS: APIXABAN 5 MG TAB PO SCH ×2 (11:00→20:24)
[2021-10-18] MEDS: MONTELUKAST 10 MG TAB PO SCH (11:00)
[2021-10-18] MEDS: DOXYCYCLINE 100 MG CAP PO SCH ×2 (11:00→21:15)
[2021-10-18] MEDS: CYANOCOBALAMIN 500 MCG TAB PO SCH (11:00)
[2021-10-18] MEDS: FOLIC ACID 1 MG TAB PO SCH (11:00)
[2021-10-18] MEDS: ASCORBIC ACID 500 MG TAB PO SCH (11:00)
[2021-10-18] MEDS: CHOLECALCIFEROL 25 MCG (1000 IU) TABLET PO SCH (11:00)
--- NOTE | 2021-10-18 11:07 | P.CRDCN ---
History of Present Illness History of present illness: This is a 81 year old female with a past medical history of hypertension, dyslipidemia, GERD, recent Covid-19 infection 10/10/21. She does not follow with a radiographer angiogram. We are consulted for new onset Atrial fibrillation. Patient presents to the emergency department with complaints of cough, abdominal pain, and increasing shortness of breath. She initially went to an outpatient clinic and was told to come to the emergency department. She has been diagnosed with bilateral pneumonia. Her Covid-19 test was negative. Her symptoms have improved since presentation to the ER. She does endorse occasionally palpitations. She denies any fever, chills, nightsweats, chest pain, lightheadedness, dizziness, syncope or near syncope. No symptoms of orthopnea, PND. She denies history of CAD, VT, Stroke, or diabetes. She denies any family history of cardiac disease. She denies tobacco or alcohol use. DIAGNOSTICS EKG reveals atrial fibrillation with RVR HR 110. No prior EKG to compare. Telemetry tracings indicate atrial fibrillation with heart rates in the [id number] Chest xray bilateral lobe infiltrates CT chest report revealed bilateral lower lobe consolidation more in the left side. This could represent pneumonia or recurrent aspiration. echocardiogram reveals an EF of 5055% mild MR, mild TR, mild pulmonary hypertension RVSP of 34 mmHg Laboratory reviewed, sodium 134, potassium 4.8, BUN 26, serum creatinine 1.2, TSH within normal limits, COVID-19 negative, WBC 15.7, hemoglobin 11.5, platelets 261, hemoglobin A1c 6.6 Current home medications includeprednisone 20 mg daily, aspirin lactone 50 mg daily, simvastatin 40 mg daily, bisoprolol 10 mg twice a day REVIEW OF SYSTEMS At the time of my exam: CONSTITUTIONAL: Denies fever or chills. CARDIOVASCULAR: Denies chest pain, shortness of breath, orthopnea, PND or palpitations. RESPIRATORY: Denies cough. GASTROINTESTINAL: Denies abdominal pain, diarrhea, constipation, nausea or vomiting. MUSCULOSKELETAL: Denies myalgias. NEUROLOGIC: Denies numbness, tingling, headacbe or weakness. ENDOCRINE: Denies fatigue, weight change, polydipsia or polyurina. GENITOURINARY: Denies burning, hematuria or urgency with micturation. HEMATOLOGIC: Denies history of anemia or bleeding. PHYSICAL EXAMINATION Vsweop057/93, heart rate 97, afebrile, saturations 97% on room air CONSTITUTIONAL: No apparent distress. HEENT: Head is normocephalic. Pupils are equal, round. Sclerae anicteric. Mucous membranes of the mouth are moist. No JVD. No carotid bruit. CHEST EXAMINATION: Lungs are diminished in bases to auscultation bilaterally. No chest wall tenderness is noted on palpation or with deep breathing. HEART EXAMINATION: Irregular rate and rhythm. S1, S2 heard. No murmurs, gallops or rub. ABDOMEN: Soft, nontender. Positive bowel sounds. EXTREMITIES: 2+ peripheral pulses, no lower extremity edema and no calf tenderness. SKIN: warm, dry NEUROLOGIC EXAMINATION: Patient is awake, alert and oriented x3. ASSESSMENT New onset paroxysmal atrial fibrillation with RVR -[id number] score 4 Pneumonia Leukocytosis Acute kidney injury, improved Hypertension Dyslipidemia GERD Recent Covid-19 infection 10/10/21. PLAN Stop IV heparin Start Eliquis 5mg BID, consult case management for coverage Increase metoprolol tartrate to 25mg BID Start Verapamil 40mg BID Start Losartan 12.5mg daily Continue cardiac telemetry Further recommendations based on clinical course Nurse practitioner note has been reviewed by physician. Signing provider agrees with the documented findings, assessment, and plan of care. Past Medical History Past Medical History: GERD/Reflux, Hyperlipidemia, Hypertension Additional Past Medical History / Comment(s): Hx "racing heart" History of Any Multi-Drug Resistant Organisms: None Reported Past Surgical History: No Surgical Hx Reported Additional Past Surgical History / Comment(s): D&C, colonoscopies,rt breast biopsy Past Anesthesia/Blood Transfusion Reactions: Motion Sickness Smoking Status: Never smoker - Past Family History Daughter(s) Family Medical History: Cancer Additional Family Medical History / Comment(s): leukemia Medications and Allergies Home Medications Medication Instructions Recorded Confirmed Type Omeprazole [PriLOSEC] 40 mg PO DAILY 11/07/14 10/16/21 History Simvastatin [Zocor] 40 mg PO DAILY 11/07/14 10/16/21 History Spironolactone 50 mg PO DAILY 11/07/14 10/16/21 History Ascorbic Acid [Vitamin C] 500 mg PO DAILY 11/12/17 10/16/21 History Cholecalciferol [Vitamin D3] 1,000 unit PO DAILY 11/12/17 10/16/21 History Cyanocobalamin (Vitamin B-12) 1,000 mcg PO DAILY 11/12/17 10/16/21 History [Vitamin B-12] Folic Acid 0.4 mg PO DAILY 11/12/17 10/16/21 History Healthy Eyes Vitamin 1 tab PO DAILY 11/12/17 10/16/21 History Magnesium Oxide [Cervantes] 500 mg PO DAILY 11/12/17 10/16/21 History Rembert-3 Fatty Acids/Fish Oil [Fish 1 cap PO DAILY 11/12/17 10/16/21 History Oil 1,000 mg Softgel] flaxseed oiL [Rembert-3 Flaxseed Oil] 1,000 mg PO DAILY 11/12/17 10/16/21 History Albuterol Sulfate [Proventil Hfa] 1 puff INHALATION RT-DAILY PRN 10/16/21 10/16/21 History Bisoprolol Fumarate [Zebeta] 10 mg PO BID 10/16/21 10/16/21 History Calcium Carbonate [Tums] 500 mg PO DAILY 10/16/21 10/16/21 History Montelukast [Singulair] 10 mg PO DAILY 10/16/21 10/16/21 History Vitamin C/Biotin [Hair, Skin and 1 tab PO DAILY 10/16/21 10/16/21 History Nails Chew] predniSONE [Deltasone] 20 mg PO DAILY 10/16/21 10/16/21 History Apixaban [Eliquis] 5 mg PO BID 30 Days #60 tab 10/18/21 Rx Allergies Allergy/AdvReac Type Severity Reaction Status Date / Time procaine [From Novocain] Allergy Anaphylaxis Verified 10/16/21 16:31 Physical Exam Vitals: Vital Signs Pulse Resp BP Pulse Ox 10/18/21 06:16 91 18 148/92 97 10/18/21 05:24 89 20 112/61 94 L 10/18/21 04:00 98 22 133/64 95 10/18/21 00:00 108 H 20 122/69 96 10/17/21 19:10 105 H 20 145/104 95 10/17/21 15:09 115 H 18 95 10/17/21 11:25 100 20 137/73 95 10/17/21 10:00 72 18 120/92 98 Results 10/18/21 06:13 10/18/21 06:13 Cardiac Enzymes 10/17/21 10/17/21 Range/Units 10:09 10:09 AST 41 H (14-36) U/L Lactate Dehydrogenase 475 (313-618) U/L Coagulation 10/17/21 10/17/21 10/18/21 Range/Units 15:57 20:32 06:13 PT 12.5 H 12.0 (9.0-12.0) sec APTT 88.7 H 53.7 H 61.2 H (22.0-30.0) sec CBC 10/17/21 10/17/21 Range/Units 10:09 15:57 WBC 16.8 H 17.3 H (3.8-10.6) k/uL RBC 4.10 4.03 (3.80-5.40) m/uL Hgb 13.4 13.2 (11.4-16.0) gm/dL Hct 41.4 40.4 (34.0-46.0) % Plt Count 266 297 (150-450) k/uL Comprehensive Metabolic Panel 10/17/21 Range/Units 10:09 Sodium 137 (137-145) mmol/L Potassium 4.5 (3.5-5.1) mmol/L Chloride 101 (98-107) mmol/L Carbon Dioxide 25 (22-30) mmol/L BUN 23 H (7-17) mg/dL Creatinine 1.04 (0.52-1.04) mg/dL Glucose 163 H (74-99) mg/dL Calcium 9.7 (8.4-10.2) mg/dL AST 41 H (14-36) U/L ALT 43 H (4-34) U/L Alkaline Phosphatase 141 H (38-126) U/L Total Protein 7.0 (6.3-8.2) g/dL Albumin 3.5 (3.5-5.0) g/dL Current Medications Generic Name Dose Route Start Last Admin Trade Name Freq PRN Reason Stop Dose Admin Albuterol Sulfate 2 puff 10/17/21 10:53 Albuterol Hfa Inhaler INHALATION RT-DAILY PRN Wheezing Ascorbic Acid 500 mg 10/17/21 09:00 10/17/21 11:42 Ascorbic Acid 500 Mg Tab PO 500 mg DAILY NELLIE Administration Azithromycin 500 mg 10/17/21 09:00 10/17/21 10:16 Azithromycin 500 Mg Tab PO 10/18/21 09:01 500 mg DAILY NELLIE Administration Protocol Cholecalciferol 25 mcg 10/17/21 10:00 10/17/21 11:42 Cholecalciferol 25 Mcg (1000 Iu) Tablet PO 25 mcg DAILY NELLIE Administration Cyanocobalamin 1,000 mcg 10/17/21 10:00 10/17/21 11:42 Cyanocobalamin 500 Mcg Tab PO 1,000 mcg DAILY NELLIE Administration Folic Acid 0.5 mg 10/17/21 10:00 10/17/21 11:43 Folic Acid 1 Mg Tab PO 0.5 mg DAILY NELLIE Administration Heparin Sodium (Porcine) 0 unit 10/17/21 14:02 Heparin Sodium 1,000 Un/Ml (10ml Vl) IV PER PROTOCOL PRN Low PTT Protocol Heparin Sodium/Sodium Chloride 250 mls @ 9.743 mls/hr 10/17/21 14:15 10/17/21 15:03 25,000 unit/ Sodium Chloride IV 12 units/kg/hr .Q24H NELLIE 9.743 mls/hr Administration Protocol 12 UNITS/KG/HR Insulin Aspart 0 unit 10/17/21 17:30 10/17/21 21:17 Insulin Aspart (Novolog) 100 Unit/Ml Vial SQ Not Given ACHS [facility] Protocol Methylprednisolone Sodium Succinate 40 mg 10/17/21 16:00 10/18/21 01:39 Methylprednisolone Sod Succi 40 Mg/Ml 1 Ml Vial IV 40 mg Q8HR NELLIE Administration Metoprolol Tartrate 25 mg 10/17/21 21:00 10/17/21 21:23 Metoprolol Tartrate 25 Mg Tab PO 25 mg BID NELLIE Administration Miscellaneous Information 1 each 10/16/21 15:46 Pneumonia Protocol Utilized 1 Each Misc PO ONCE PRN Per Protocol Montelukast Sodium 10 mg 10/17/21 10:00 10/17/21 11:42 Montelukast 10 Mg Tab PO 10 mg DAILY [facility] Administration Pantoprazole Sodium 40 mg 10/18/21 07:30 Pantoprazole 40 Mg Tablet PO AC-[id number] [facility] 10/17/21 15:57 10/17/21 10:09
[2021-10-18] MEDS: IPRATROPIUM-ALBUTEROL 3 ML NEB INHALATION SCH ×3 (11:30→20:47)
--- NOTE | 2021-10-18 11:45 | P.PN ---
Subjective Progress Note Date: 10/18/21 This is an 81-year-old female patient with a known history of hypertension, hyperlipidemia and gastroesophageal reflux disease. Nonsmoker. One week ago ago the patient developed increasing shortness of breath, cough congestion and reportedly tested positive for COVID-19 at a outpatient clinic on 10/11/2021. She was initiated on prednisone and vitamin supplements. Today her symptoms worsened and she presented here to the emergency room for the same. She denied any nausea, vomiting or diarrhea. No dizziness or lightheadedness. No sputum production. No fever or chills. No body aches. Chest x-ray revealed bilateral lower lobe infiltrates and evidence of COPD. Computed tomography scan of the chest revealed bilateral lower lobe chronic atelectasis/consolidation more so on the left. Possibly related to pneumonia or recurrent aspiration however and underlying lesion cannot be excluded. White count 16.8. Hemoglobin 13.4. Sodium 137. Potassium 4.5. Bicarb 25. BUN 23. Creatinine 1.04. Glucose 163. AST 41. ALT 43. Pro-calcitonin 0.09. [place] virus by PCR not detected here. She's been initiated on ceftriaxone and azithromycin along with vitamin supplements and Lovenox. The patient is seen today 10/18/2021 in follow-up in the emergency department. She is awake and alert in no acute distress. Currently sitting up in bed. She is maintaining good O2 saturations in the 90s on room air. She did develop atrial fibrillation and is currently on a heparin drip. White count 15.7. Hemoglobin 11.5. Platelets 261. Sodium 134. Potassium 4.8. BUN 26. Creatinine 1.2. Glucose 147. Sputum culture pending. Pro-calcitonin 0.09. She was treated with ceftriaxone and azithromycin. Objective - Vital Signs Vital signs: Vital Signs Temp 96.7 F L 10/18/21 08:00 Pulse 109 H 10/18/21 11:33 Resp 18 10/18/21 08:00 BP 126/93 10/18/21 08:00 Pulse Ox 97 10/18/21 08:00 Intake & Output 10/17/21 10/18/21 10/18/21 18:59 06:59 18:59 Other: # Voids 1 - Exam GENERAL EXAM: Alert, pleasant 81-year-old female patient, on room air, comfortable in no apparent distress. HEAD: Normocephalic. EYES: Normal reaction of pupils, equal size. NOSE: Clear with pink turbinates. THROAT: No erythema or exudates. NECK: No masses, no JVD. CHEST: No chest wall deformity. LUNGS: Equal air entry with faint end expiratory wheeze, few scattered rhonchi. CVS: S1 and S2 normal with no audible murmur, irregular rhythm. ABDOMEN: No hepatosplenomegaly, normal bowel sounds, no guarding or rigidity. SPINE: No scoliosis or deformity SKIN: No rashes CENTRAL NERVOUS SYSTEM: No focal deficits, tone is normal in all 4 extremities. EXTREMITIES: There is no peripheral edema. No clubbing, no cyanosis. Peripheral pulses are intact. - Labs CBC & Chem 7: 10/18/21 06:13 10/18/21 06:13 Labs: Abnormal Lab Results - Last 24 Hours (Table) 10/17/21 10/17/21 10/17/21 Range/Units 10:09 15:57 15:57 WBC 17.3 H (3.8-10.6) k/uL RBC (4.10-5.20) X 10*6/uL Hgb (12.0-15.0) g/dL Hct (37.2-46.3) % MCV 100.2 H (80.0-100.0) fL MPV (9.5-12.2) fL Immature Gran # (0.00-0.04) X 10*3/uL Neutrophils # 14.2 H (1.3-7.7) k/uL Eosinophils # (0.04-0.35) X 10*3/uL PT 12.5 H (9.0-12.0) sec INR 1.2 H (<1.2) APTT 88.7 H (22.0-30.0) sec Sodium (135-145) mmol/L Est GFR (CKD-EPI)AfAm (60.0-200.0) Est GFR (CKD-EPI)NonAf (60.0-200.0) BUN/Creatinine Ratio (12.00-20.00) Ratio Glucose (70-110) mg/dL POC Glucose (mg/dL) (75-99) mg/dL Hemoglobin A1c (0.0-6.0) % C-Reactive Protein 4.8 H (<1.0) mg/dL Total Protein (6.2-8.2) g/dL Albumin (3.8-4.9) g/dL Albumin/Globulin Ratio (1.60-3.17) g/dL 10/17/21 10/17/21 10/17/21 Range/Units 15:57 16:58 20:32 WBC (3.8-10.6) k/uL RBC (4.10-5.20) X 10*6/uL Hgb (12.0-15.0) g/dL Hct (37.2-46.3) % MCV (80.0-100.0) fL MPV (9.5-12.2) fL Immature Gran # (0.00-0.04) X 10*3/uL Neutrophils # (1.3-7.7) k/uL Eosinophils # (0.04-0.35) X 10*3/uL PT (9.0-12.0) sec INR (<1.2) APTT 53.7 H (22.0-30.0) sec Sodium (135-145) mmol/L Est GFR (CKD-EPI)AfAm (60.0-200.0) Est GFR (CKD-EPI)NonAf (60.0-200.0) BUN/Creatinine Ratio (12.00-20.00) Ratio Glucose (70-110) mg/dL POC Glucose (mg/dL) 108 H (75-99) mg/dL Hemoglobin A1c 6.6 H (0.0-6.0) % C-Reactive Protein (<1.0) mg/dL Total Protein (6.2-8.2) g/dL Albumin (3.8-4.9) g/dL Albumin/Globulin Ratio (1.60-3.17) g/dL 10/17/21 10/18/21 10/18/21 Range/Units 21:16 06:13 06:13 WBC 15.76 H (3.8-10.6) k/uL RBC 3.62 L (4.10-5.20) X 10*6/uL Hgb 11.5 L (12.0-15.0) g/dL Hct 35.0 L (37.2-46.3) % MCV (80.0-100.0) fL MPV 12.4 H (9.5-12.2) fL Immature Gran # 0.12 H (0.00-0.04) X 10*3/uL Neutrophils # 13.64 H (1.3-7.7) k/uL Eosinophils # 0 L (0.04-0.35) X 10*3/uL PT (9.0-12.0) sec INR (<1.2) APTT (22.0-30.0) sec Sodium 134 L (135-145) mmol/L Est GFR (CKD-EPI)AfAm 48.7 L (60.0-200.0) Est GFR (CKD-EPI)NonAf 42.1 L (60.0-200.0) BUN/Creatinine Ratio 22.17 H (12.00-20.00) Ratio Glucose 162 H (70-110) mg/dL POC Glucose (mg/dL) 185 H (75-99) mg/dL Hemoglobin A1c (0.0-6.0) % C-Reactive Protein (<1.0) mg/dL Total Protein 6.0 L (6.2-8.2) g/dL Albumin 3.3 L (3.8-4.9) g/dL Albumin/Globulin Ratio 1.22 L (1.60-3.17) g/dL 10/18/21 10/18/21 Range/Units 06:13 08:47 WBC (3.8-10.6) k/uL RBC (4.10-5.20) X 10*6/uL Hgb (12.0-15.0) g/dL Hct (37.2-46.3) % MCV (80.0-100.0) fL MPV (9.5-12.2) fL Immature Gran # (0.00-0.04) X 10*3/uL Neutrophils # (1.3-7.7) k/uL Eosinophils # (0.04-0.35) X 10*3/uL PT (9.0-12.0) sec INR (<1.2) APTT 61.2 H (22.0-30.0) sec Sodium (135-145) mmol/L Est GFR (CKD-EPI)AfAm (60.0-200.0) Est GFR (CKD-EPI)NonAf (60.0-200.0) BUN/Creatinine Ratio (12.00-20.00) Ratio Glucose (70-110) mg/dL POC Glucose (mg/dL) 147 H (75-99) mg/dL Hemoglobin A1c (0.0-6.0) % C-Reactive Protein (<1.0) mg/dL Total Protein (6.2-8.2) g/dL Albumin (3.8-4.9) g/dL Albumin/Globulin Ratio (1.60-3.17) g/dL Microbiology - Last 24 Hours (Table) 10/16/21 15:25 Blood Culture Gram Stain - Final Blood Blood Culture - Final Coagulase Negative Staph Coagulase Negative Staph#2 10/16/21 21:24 Gram Stain - Preliminary Sputum Sputum Culture - Preliminary 10/16/21 16:00 Blood Culture - Preliminary Blood No Growth after 24 hours 10/16/21 15:45 Blood Culture - Final Blood Assessment and Plan Assessment: 1 Dyspnea secondary to suspected acute community-acquired pneumonia more so on the left lung base. Neoplasm cannot be totally excluded. Possible previous COVID-19 infection. COVID-19 by PCR negative here. Pro calcitonin 0.09. 2 Leukocytosis secondary to above 3 Hyponatremia, recovered currently 134 4 Acute renal failure, recovered current creatinine 1.2 5 Mild transaminitis, recovered and normalized 6 Hypertension 7 Hyperlipidemia 8 Gastroesophageal reflux disease 9 New-onset atrial fibrillation, currently on a heparin drip Plan: The patient was seen and evaluated Stable and on room air Complete a one week course of doxycycline Discontinue steroids Continue Symbicort, albuterol, Singulair Cleared for discharge from the pulmonary standpoint Will need to be transitioned to oral anticoagulant Follow-up in the office in one to two-weeks I have personally seen and examined the patient, performed the documentation and the assessment and plan as written. Number of minutes spent on the visit: 10.
[2021-10-18 12:00] LABS: Glucose,Whole Blood 144 mg/dL (75-99)
--- NOTE | 2021-10-18 15:36 | P.PN ---
Subjective Progress Note Date: 10/18/21 H&P Date: 10/17/21 This is an 81-year-old female presents to the emergency room with complaints of increased shortness of breath. is at the bedside. Patient has symptoms ongoing for the last couple weeks, she was tested positive for Covid last Saturday with interval progression of symptoms. Patient was started on an oral steroid taper with last doing being today from the walk in clinic. Chest x-ray on admission shows right lower lobe patchy density may reflect developing infiltrate. Follow-up chest x-ray in the morning shows slight improvement of infiltrate, COPD. Patient followed with Dr Kimberlee Holbrook in the primary office, states she has not been in since August and at that time states she had a chest xray and CT done which showed a nodule which there has been no further work up. Patient states she is a never smoker, no alcohol use. She denies history of heart failure, states she does have a heart arrythmia, denies history of atrial fibrillation. Patient is somewhat of a poor historian. Patient is currently working in the school setting. White count 14.1 admission, sodium 129, BUN 24, creatinine 1.17, glucose 152, elevated liver enzymes. Covid NOT d etected this admission. Chronic medical conditions include GERD, hyperlipidemia, hypertension, racing heart. Patient is a never smoker. Patient currently afebrile, heart rate is slightly elevated at 93 with an episode of tachycardia 118, 95% on room air. Patient was admitted to the hospital with consults placed to pulmonary services. Patient received a 1 Liter fluid bolus, received a dose of IV azithromycin, IV Rocephin, also one-time dose of oral dexamethasone. -EKG requested which shows atrial fibrillation. Home medication includes bisoprolol, not on any anticoagulation. Consultation requested to cardiology for further evaluation. -Chest CT completed today shows bilateral lower lobe atelectasis/consolidation when the left side as described above. This could be related to pneumonia or recent aspiration of her underlying lesion cannot be excluded. Recommend follow-up advised in 6-8 weeks. 10/18/2021 Patient evaluated in the emergency room. Underwent evaluation by cardiology and has been started on eliquis for atrial fibrillation. There is still question whether this is new onset. Today during evaluation heart rate was in the 120s, which came down to 90s after morning medications. Cardiology has started patient on losartan, Lopressor, verapamil. Additionally she continues on oral doxycycline per pulmonary, symbicort, duonebs. White count today is 15.76, hemoglobin 11.5, sodium 134. TSH is low normal at 0.519. Inflammatory markers are elevated. Liver enzymes have returned to normal today. Creatinine today 1.2. A1c was found to be 6.6 which is consistent with diabetes mellitus, patient is currently receiving NovoLog sliding scale. -Echocardiogram showing EF of 50-55% with mild pulmonary hypertension, mild aortic valve sclerosis, mild MR, mild TR. REVIEW OF SYSTEMS: CONSTITUTIONAL: No fever, no malaise, reports fatigue. HEENT: No recent visual problems or hearing problems. Denied any sore throat. CARDIOVASCULAR: No chest pain, orthopnea, PND, no palpitations, no syncope. PULMONARY: Reports shortness of breath, reports occasional cough with white to yellow sputum. GASTROINTESTINAL: No diarrhea, no nausea, no vomiting, no abdominal pain. NEUROLOGICAL: No headaches, no weakness, no numbness. The rest of the 14-point review of systems is negative. PHYSICAL EXAMINATION: GENERAL: The patient is alert and oriented x3, not in any acute distress. Well developed, well nourished. HEENT: Pupils are round and equally reacting to light. EOMI. No scleral icterus. No conjunctival pallor. Normocephalic, atraumatic. No pharyngeal erythema. No thyromegaly. CARDIOVASCULAR: S1 and S2 present. Irregular rate and rhythm, tachycardic. PULMONARY: Faint scattered posterior wheezing noted today. ABDOMEN: Soft, nontender, nondistended, normoactive bowel sounds. No palpable organomegaly. MUSCULOSKELETAL: No joint swelling or deformity. EXTREMITIES: No cyanosis, clubbing, or pedal edema. NEUROLOGICAL: Gross neurological examination did not reveal any focal deficits. SKIN: No rashes. Assessment and plan Assessment 1 Shortness of breath with possible right lower lobe pneumonia. Patient with self reported recent Covid infection, COVID currently showing negative this admission. She has been on an oral steroid taper outpatient and vitamins. Procalcitonin is negative at 0.09, chest CT showing atelectasis/consolidation and cannot exclude neoplasm. Patient reports history of known nodule from CT completed in August of this year. On oral antibiotics. -Atrial fibrillation with rapid ventricular rate, possibly chronic/paroxysmal -Leukoyctosis secondary to above -Hyponatremia from poor oral intake, improving -Acute kidney injury mostly prerenal, improved -New diagnosis diabetes mellitus with hyperglycemia, A1C 6.6. -Elevated liver enzymes, normalized -Elevated inflammatory markers -Hypertension -History of hyperlipidemia -History of gastroesophageal -Never smoker -Obesity GI Prophylaxis DVT Prophylaxis Eliquis Plan Patient started on eliquis Started on verapamil, losartan Metoprolol increased Continue antibiotics as per pulmonary Continue novolog Pulmonary consult, Cardiology consult PT/OT consultation Continue all other supportive care The impression and plan of care has been dictated by Nurse Venice Prac titioner as directed. Dr. Kal MD I have performed a history and physical examination and medical decision making of this patient, discussed the same with the dictator, and agree with the dictators assessment and plan as written, documented as a scribe. Based on total visit time, I have performed more than 50% of this visit. Objective - Vital Signs Vital signs: Vital Signs Temp 97.1 F L 10/18/21 11:47 Pulse 85 10/18/21 11:47 Resp 20 10/18/21 11:47 BP 112/76 10/18/21 11:47 Pulse Ox 93 L 10/18/21 11:47 Intake & Output 10/17/21 10/18/21 10/18/21 18:59 06:59 18:59 Other: # Voids 1 - Labs CBC & Chem 7: 10/18/21 06:13 10/18/21 06:13 Labs: Abnormal Lab Results - Last 24 Hours (Table) 10/17/21 10/17/21 10/17/21 Range/Units 15:57 15:57 15:57 WBC 17.3 H (3.8-10.6) k/uL RBC (4.10-5.20) X 10*6/uL Hgb (12.0-15.0) g/dL Hct (37.2-46.3) % MCV 100.2 H (80.0-100.0) fL MPV (9.5-12.2) fL Immature Gran # (0.00-0.04) X 10*3/uL Neutrophils # 14.2 H (1.3-7.7) k/uL Eosinophils # (0.04-0.35) X 10*3/uL PT 12.5 H (9.0-12.0) sec INR 1.2 H (<1.2) APTT 88.7 H (22.0-30.0) sec Sodium (135-145) mmol/L Est GFR (CKD-EPI)AfAm (60.0-200.0) Est GFR (CKD-EPI)NonAf (60.0-200.0) BUN/Creatinine Ratio (12.00-20.00) Ratio Glucose (70-110) mg/dL POC Glucose (mg/dL) (75-99) mg/dL Hemoglobin A1c 6.6 H (0.0-6.0) % Total Protein (6.2-8.2) g/dL Albumin (3.8-4.9) g/dL Albumin/Globulin Ratio (1.60-3.17) g/dL 10/17/21 10/17/21 10/17/21 Range/Units 16:58 20:32 21:16 WBC (3.8-10.6) k/uL RBC (4.10-5.20) X 10*6/uL Hgb (12.0-15.0) g/dL Hct (37.2-46.3) % MCV (80.0-100.0) fL MPV (9.5-12.2) fL Immature Gran # (0.00-0.04) X 10*3/uL Neutrophils # (1.3-7.7) k/uL Eosinophils # (0.04-0.35) X 10*3/uL PT (9.0-12.0) sec INR (<1.2) APTT 53.7 H (22.0-30.0) sec Sodium (135-145) mmol/L Est GFR (CKD-EPI)AfAm (60.0-200.0) Est GFR (CKD-EPI)NonAf (60.0-200.0) BUN/Creatinine Ratio (12.00-20.00) Ratio Glucose (70-110) mg/dL POC Glucose (mg/dL) 108 H 185 H (75-99) mg/dL Hemoglobin A1c (0.0-6.0) % Total Protein (6.2-8.2) g/dL Albumin (3.8-4.9) g/dL Albumin/Globulin Ratio (1.60-3.17) g/dL 10/18/21 10/18/21 10/18/21 Range/Units 06:13 06:13 06:13 WBC 15.76 H (3.8-10.6) k/uL RBC 3.62 L (4.10-5.20) X 10*6/uL Hgb 11.5 L (12.0-15.0) g/dL Hct 35.0 L (37.2-46.3) % MCV (80.0-100.0) fL MPV 12.4 H (9.5-12.2) fL Immature Gran # 0.12 H (0.00-0.04) X 10*3/uL Neutrophils # 13.64 H (1.3-7.7) k/uL Eosinophils # 0 L (0.04-0.35) X 10*3/uL PT (9.0-12.0) sec INR (<1.2) APTT 61.2 H (22.0-30.0) sec Sodium 134 L (135-145) mmol/L Est GFR (CKD-EPI)AfAm 48.7 L (60.0-200.0) Est GFR (CKD-EPI)NonAf 42.1 L (60.0-200.0) BUN/Creatinine Ratio 22.17 H (12.00-20.00) Ratio Glucose 162 H (70-110) mg/dL POC Glucose (mg/dL) (75-99) mg/dL Hemoglobin A1c (0.0-6.0) % Total Protein 6.0 L (6.2-8.2) g/dL Albumin 3.3 L (3.8-4.9) g/dL Albumin/Globulin Ratio 1.22 L (1.60-3.17) g/dL 10/18/21 10/18/21 Range/Units 08:47 11:40 WBC (3.8-10.6) k/uL RBC (4.10-5.20) X 10*6/uL Hgb (12.0-15.0) g/dL Hct (37.2-46.3) % MCV (80.0-100.0) fL MPV (9.5-12.2) fL Immature Gran # (0.00-0.04) X 10*3/uL Neutrophils # (1.3-7.7) k/uL Eosinophils # (0.04-0.35) X 10*3/uL PT (9.0-12.0) sec INR (<1.2) APTT (22.0-30.0) sec Sodium (135-145) mmol/L Est GFR (CKD-EPI)AfAm (60.0-200.0) Est GFR (CKD-EPI)NonAf (60.0-200.0) BUN/Creatinine Ratio (12.00-20.00) Ratio Glucose (70-110) mg/dL POC Glucose (mg/dL) 147 H 144 H (75-99) mg/dL Hemoglobin A1c (0.0-6.0) % Total Protein (6.2-8.2) g/dL Albumin (3.8-4.9) g/dL Albumin/Globulin Ratio (1.60-3.17) g/dL Microbiology - Last 24 Hours (Table) 10/16/21 15:25 Blood Culture Gram Stain - Final Blood Blood Culture - Final Coagulase Negative Staph Coagulase Negative Staph#2 10/16/21 21:24 Gram Stain - Preliminary Sputum Sputum Culture - Preliminary 10/16/21 16:00 Blood Culture - Preliminary Blood No Growth after 24 hours 10/16/21 15:45 Blood Culture - Final Blood Assessment and Plan Time with Patient: Less than 30
[2021-10-18 18:17] LABS: Glucose,Whole Blood 111 mg/dL (75-99)
[2021-10-18] MEDS ORDERED: DILTIAZEM DRIP BOLUS FROM BAG 1 MG SOLN IV ONE (18:24)
[2021-10-18] MEDS ORDERED: DILTIAZEM 125 MG in SODIUM CHLORIDE 0.9% 100 ML IV SCH ×5 (18:30→18:45)
--- NOTE | 2021-10-18 18:51 | P.EN ---
A- team: Indication: A. fib with RVR Arrived on Scene to find: Patient in bed. Heart rate 140-175. Blood pressure stable. Patient seen and examined at bedside. Denies any chest pain, shortness breath, nausea, vomiting. States she feels fine. Her that she has to go to the cardiac floor be monitored more closely have a Cardizem drip started. Patient and agree with plan of care. Vital signs reviewed General: non toxic, no distress, appears at stated age Derm: warm, dry Head: atraumatic, normocephalic, symmetric Eyes: EOMI, no lid lag, anicteric sclera Mouth: no lip lesion, mucus membranes moist Cardiovascular: S1S2 irregular and tachycardic, no murmur, positive posterior tibial pulse bilateral, Lungs: Course breath sounds bilateral, no rhonchi, no rales , no accessory muscle use Psych: Alert, oriented, appropriate affect Assessment: A. fib with RVR-had been diagnosed on admission but was rate controlled Pneumonia Leukocytosis Plan: Continue with all of with Cardizem 5 mg IV bolus from bag been started at 5 mg and titrate up to 15 as needed to control heart rate less than 110. -Cardiology is already following -Telemetry -Hold oral dose of metoprolol 50 mg. - echo reviewed with EF 50-55% Disposition: Transferred to 3 S. Notified: -Dr. Westfall had already spoken with nurse on the floor A Total of 32 minutes of critical care time was spent on the complex care of this patient.
[2021-10-18] MEDS: SYMBICORT 160-4.5 MCG INHALER INHALATION SCH (20:57)
[2021-10-19] MEDS: PANTOPRAZOLE 40 MG TABLET PO SCH (05:48)
[2021-10-19] MEDS: SYMBICORT 160-4.5 MCG INHALER INHALATION SCH ×2 (08:54→20:44)
[2021-10-19] MEDS: IPRATROPIUM-ALBUTEROL 3 ML NEB INHALATION SCH ×4 (08:54→20:43)
[2021-10-19 09:19] LABS: Basophils % (A) 0 %; Eosinophils # (A) 0.1 k/uL (0-0.7); Eosinophils % (A) 1 %; HCT 38.5 % (34.0-46.0); HGB 12.1 gm/dL (11.4-16.0); Lymphocytes # (A) 2.5 k/uL (1.0-4.8); Lymphocytes % (A) 24 %; MCH 31.5 pg (25.0-35.0); MCHC 31.5 g/dL (31.0-37.0); MCV 99.9 fL (80.0-100.0); Monocytes # (A) 0.8 k/uL (0-1.0); Monocytes % (A) 7 %; Neutrophils # (A) 6.9 k/uL (1.3-7.7); Neutrophils % (A) 66 %; Platelet Count 260 k/uL (150-450); RBC 3.85 m/uL (3.80-5.40); RDW 12.1 % (11.5-15.5); WBC 10.4 k/uL (3.8-10.6)
[2021-10-19 09:49] LABS: Calcium 9.3 mg/dL (8.4-10.2); Potassium 4.6 mmol/L (3.5-5.1)
[2021-10-19] MEDS: LOSARTAN 25 MG TAB PO SCH (09:58)
[2021-10-19] MEDS: DOXYCYCLINE 100 MG CAP PO SCH ×2 (09:59→20:01)
[2021-10-19] MEDS: VERAPAMIL 40 MG TAB PO SCH ×2 (09:59→20:01)
[2021-10-19] MEDS: CYANOCOBALAMIN 500 MCG TAB PO SCH ×2 (10:00→10:10)
[2021-10-19] MEDS: CHOLECALCIFEROL 25 MCG (1000 IU) TABLET PO SCH ×2 (10:00→10:10)
[2021-10-19] MEDS: METOPROLOL TARTRATE 50 MG TAB PO SCH ×3 (10:00→20:01)
[2021-10-19] MEDS: APIXABAN 5 MG TAB PO SCH ×2 (10:01→20:00)
[2021-10-19] MEDS: FOLIC ACID 1 MG TAB PO SCH ×2 (10:01→10:10)
[2021-10-19] MEDS: MONTELUKAST 10 MG TAB PO SCH (10:01)
[2021-10-19] MEDS: ASCORBIC ACID 500 MG TAB PO SCH ×2 (10:01→10:10)
--- NOTE | 2021-10-19 12:42 | P.PN ---
Subjective Progress Note Date: 10/19/21 Principal diagnosis: Shortness of breath This is an 81-year-old female patient with a known history of hypertension, hyperlipidemia and gastroesophageal reflux disease. Nonsmoker. One week ago ago the patient developed increasing shortness of breath, cough congestion and repor tedly tested positive for COVID-19 at a outpatient clinic on 10/11/2021. She was initiated on prednisone and vitamin supplements. Today her symptoms worsened and she presented here to the emergency room for the same. She denied any nausea, vomiting or diarrhea. No dizziness or lightheadedness. No sputum production. No fever or chills. No body aches. Chest x-ray revealed bilateral lower lobe infiltrates and evidence of COPD. Computed tomography scan of the chest revealed bilateral lower lobe chronic atelectasis/consolidation more so on the left. Possibly related to pneumonia or recurrent aspiration however and underlying lesion cannot be excluded. White count 16.8. Hemoglobin 13.4. Sodium 137. Potassium 4.5. Bicarb 25. BUN 23. Creatinine 1.04. Glucose 163. AST 41. ALT 43. Pro-calcitonin 0.09. [place] virus by PCR not detected here. She's been initiated on ceftriaxone and azithromycin along with vitamin supplements and Lovenox. The patient is seen today 10/18/2021 in follow-up in the emergency department. She is awake and alert in no acute distress. Currently sitting up in bed. She is maintaining good O2 saturations in the 90s on room air. She did develop a trial fibrillation and is currently on a heparin drip. White count 15.7. Hemoglobin 11.5. Platelets 261. Sodium 134. Potassium 4.8. BUN 26. Creatinine 1.2. Glucose 147. Sputum culture pending. Pro-calcitonin 0.09. She was treated with ceftriaxone and azithromycin. On 10/19/2021 patient seen in follow-up on selective care unit. She is awake and alert, in no acute distress. Room air pulse ox is 95%. Breathing comfortably, no worsening cough, chest discomfort, last night patient went into A. fib with RVR with a rate of 140-170, she was started on Cardizem infusion, echocardiogram shows preserved LV function with EF of 50-55%. This morning she remains on Cardizem infusion, and she is on Ahlquist for anticoagulation, she remains on Symbicort and Ventolin, she remains on doxycycline for possibility of lower lung pneumonia. Today's labs have been reviewed, white blood cell count is improving and is down to 10.4, hemoglobin is 12.1, sodium is 135, potassium 4.6, chloride is 102, BUN is 26 creatinine is 1.17. Objective - Vital Signs Vital signs: Vital Signs Temp 97.4 F L 10/19/21 08:00 Pulse 91 10/19/21 08:00 Resp 18 10/19/21 08:00 BP 114/67 10/19/21 08:00 Pulse Ox 91 L 10/19/21 08:00 Intake & Output 10/18/21 10/19/21 10/19/21 18:59 06:59 18:59 Intake Total 236 360 Balance 236 360 Intake: Oral 236 360 Other: Voiding Method Toilet # Voids 1 2 - Exam GENERAL EXAM: Alert, very pleasant, 81-year-old white female, on room air with a pulse ox of 91-95% comfortable in no apparent distress. HEAD: Normocephalic/atraumatic. EYES: Normal reaction of pupils, equal size. Conjunctiva pink, sclera white. NOSE: Clear with pink turbinates. THROAT: No erythema or exudates. NECK: No masses, no JVD, no thyroid enlargement, no adenopathy. CHEST: No chest wall deformity. Symmetrical expansion. LUNGS: Equal air entry with mild bibasilar crackles CVS: Regular rate and rhythm, normal S1 and S2, no gallops, no murmurs, no rubs ABDOMEN: Soft, nontender. No hepatosplenomegaly, normal bowel sounds, no guarding or rigidity. EXTREMITIES: No clubbing, no edema, no cyanosis, 2+ pulses and upper and lower extremities. MUSCULOSKELETAL: Muscle strength and tone normal. SPINE: No scoliosis or deformity SKIN: No rashes CENTRAL NERVOUS SYSTEM: Alert and oriented -3. No focal deficits, tone is normal in all 4 extremities. PSYCHIATRIC: Alert and oriented -3. Appropriate affect. Intact judgment and insight. - Labs CBC & Chem 7: 10/19/21 08:18 10/19/21 08:18 Labs: Abnormal Lab Results - Last 24 Hours (Table) 10/18/21 10/19/21 Range/Units 18:16 08:18 Sodium 135 L (137-145) mmol/L BUN 26 H (7-17) mg/dL Creatinine 1.17 H (0.52-1.04) mg/dL POC Glucose (mg/dL) 111 H (75-99) mg/dL Microbiology - Last 24 Hours (Table) 10/16/21 16:00 Blood Culture - Preliminary Blood No Growth after 48 hours 10/16/21 15:25 Blood Culture Gram Stain - Final Blood Blood Culture - Final Coagulase Negative Staph Coagulase Negative Staph#2 10/16/21 21:24 Gram Stain - Preliminary Sputum Sputum Culture - Preliminary Assessment and Plan Plan: Assessment: #1. Acute dyspnea secondary to suspected acute pneumonia, possibly community acquired, more so to the left lung base. Neoplasm could not be totally excluded. Possible previous COVID-19 infection. COVID-19 by PCR was negative. #2. Leukocytosis secondary to the above, improving #3. Hyponatremia, improved #4. Acute kidney injury, improved #5. Mild transaminitis #6. Hypertension #7. Hyperlipidemia #8. GERD #9. New-onset atrial fibrillation with RVR, currently on an requests, and Cardizem infusion Plan: Continue current antibiotics Breathing comfortably, patient is on room air Has a mild cough, but no significant pulmonary symptoms White count is improving Heart rate control and anticoagulation per cardiology We'll continue to follow I have personally seen and examined the patient, performed the documentation and the assessment and plan as written. Number of minutes spent on the visit: [10] Time with Patient: Less than 30
--- NOTE | 2021-10-19 15:42 | P.PN ---
Subjective This is a 81 year old female with a past medical history of hypertension, dyslipidemia, GERD, recent Covid-19 infection 10/10/21. 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 We are consulted for new onset Atrial fibrillation. Patient presents to the emergency department with complaints of cough, abdominal pain, and increasing shortness of breath. She initially went to an outpatient clinic and was told to come to the emergency department. She has been diagnosed with bilateral pneumonia. Her Covid-19 test was negative. Her symptoms have improved since presentation to the ER. She does endorse occasionally palpitations. She denies any fever, chills, nightsweats, chest pain, lightheadedness, dizziness, syncope or near syncope. No symptoms of orthopnea, PND. She denies history of CAD, SC, Stroke, or diabetes. She denies any family history of cardiac disease. She denies tobacco or alcohol use. 10/19/2021 Patient seen and examined at bedside, no acute distress. Her breathing has improved. She denies any chest pain. Overnight patient went into atrial fibrillation with RVR was restarted on a Cardizem drip. She is currently in atrial fibrillation with heart rates in the [id number]. Echocardiogram revealed an EF of 5055 percent, mild MR, mild TR, mild pulmonary hypertension. She's currently maintained on Eliquis 5 mg twice a day, IV Cardizem 5 mg/hr, losartan 25 mg daily, metoprolol tartrate 50 mg twice a day, verapamil 40 mg twice a day PHYSICAL EXAMINATION Vitals reviewed CONSTITUTIONAL: No apparent distress. HEENT: Neck Supple. No JVD. No carotid bruit. CHEST EXAMINATION: Lungs are diminished in bases to auscultation bilaterally. No chest wall tenderness is noted on palpation or with deep breathing. HEART EXAMINATION: Irregular rate and rhythm. S1, S2 heard. No murmurs, gallops or rub. ABDOMEN: Soft, nontender. Positive bowel sounds. EXTREMITIES: 2+ peripheral pulses, no lower extremity edema and no calf tenderness. SKIN: warm, dry NEUROLOGIC EXAMINATION: Patient is awake, alert and oriented x3. ASSESSMENT New onset paroxysmal atrial fibrillation with RVR -[id number] score 4 Pneumonia Leukocytosis Acute kidney injury, improved Hypertension Dyslipidemia GERD Recent Covid-19 infection 10/10/21. PLAN Increase metoprolol to 50mg TID Continue Eliquis 5mg BID, consult case management for coverage Continue Verapamil 40mg BID Continue Losartan 12.5mg daily Continue cardiac telemetry Further recommendations based on clinical course Nurse practitioner note has been reviewed by physician. Signing provider agrees with the documented findings, assessment, and plan of care. Objective - Vital Signs Vital signs: Vital Signs Temp 97.4 F L 10/19/21 08:00 Pulse 98 10/19/21 14:00 Resp 18 10/19/21 14:00 BP 123/61 10/19/21 14:00 Pulse Ox 95 10/19/21 14:00 Intake & Output 10/18/21 10/19/21 10/19/21 18:59 06:59 18:59 Intake Total 236 360 Balance 236 360 Intake: Oral 236 360 Other: Voiding Method Toilet # Voids 1 2 - Labs CBC & Chem 7: 10/19/21 08:18 10/19/21 08:18 Labs: Abnormal Lab Results - Last 24 Hours (Table) 10/18/21 10/19/21 Range/Units 18:16 08:18 Sodium 135 L (137-145) mmol/L BUN 26 H (7-17) mg/dL Creatinine 1.17 H (0.52-1.04) mg/dL POC Glucose (mg/dL) 111 H (75-99) mg/dL Microbiology - Last 24 Hours (Table) 10/16/21 16:00 Blood Culture - Preliminary Blood No Growth after 48 hours
--- NOTE | 2021-10-19 23:06 | P.PN ---
Subjective Progress Note Date: 10/19/21 This is an 81-year-old female presents to the emergency room with complaints of increased shortness of breath. is at the bedside. Patient has symptoms ongoing for the last couple weeks, she was tested positive for Covid last Saturday with interval progression of symptoms. Patient was started on an oral steroid taper with last doing being today from the walk in clinic. Chest x-ray on admission shows right lower lobe patchy density may reflect developing infiltrate. Follow-up chest x-ray in the morning shows slight improvement of infiltrate, COPD. Patient followed with Dr Kimberlee Holbrook in the primary office, states she has not been in since August and at that time states she had a chest xray and CT done which showed a nodule which there has been no further work up. Patient states she is a never smoker, no alcohol use. She denies history of heart failure, states she does have a heart arrythmia, denies history of atrial fibrillation. Patient is somewhat of a poor historian. Patient is currently working in the school setting. White count 14.1 admission, sodium 129, BUN 24, creatinine 1.17, glucose 152, elevated liver enzymes. Covid NOT detected this admission. Chronic medical conditions include GERD, hyperlipidemia, hypertension, racing heart. Patient is a never smoker. Patient currently afebrile, heart rate is slightly elevated at 93 with an episode of tachycardia 118, 95% on room air. Patient was admitted to the hospital with consults placed to pulmonary services. Patient received a 1 Liter fluid bolus, received a dose of IV azithromycin, IV Rocephin, also one-time dose of oral dexamethasone. -EKG requested which shows atrial fibrillation. Home medication includes bisoprolol, not on any anticoagulation. Consultation requested to cardiology for further evaluation. -Chest CT completed today shows bilateral lower lobe atelectasis/consolidation when the left side as described above. This could be related to pneumonia or recent aspiration of her underlying lesion cannot be excluded. Recommend follow-up advised in 6-8 weeks. 10/18/2021 Patient evaluated in the emergency room. Underwent evaluation by cardiology and has been started on eliquis for atrial fibrillation. There is still question whether this is new onset. Today during evaluation heart rate was in the 120s, which came down to 90s after morning medications. Cardiology has started patient on losartan, Lopressor, verapamil. Additionally she continues on oral doxycycline per pulmonary, symbicort, duonebs. White count today is 15.76, hemoglobin 11.5, sodium 134. TSH is low normal at 0.519. Inflammatory markers are elevated. Liver enzymes have returned to normal today. Creatinine today 1.2. A1c was found to be 6.6 which is consistent with diabetes mellitus, patient is currently receiving NovoLog sliding scale. -Echocardiogram showing EF of 50-55% with mild pulmonary hypertension, mild aortic valve sclerosis, mild MR, mild TR. 10/19/2021 Patient is seen in follow up this morning and has been transferred to selective unit for close monitoring as patient went into atrial fibrillation with RVR and placed on cardizem drip. Patient is anticoagulated with Eliquis and will contin ue. Cardiology following and has resumed medications. Patient also continues on steroids, vitamins and doxycycline. Pulmonary following as well. REVIEW OF SYSTEMS: CONSTITUTIONAL: No fever, no malaise, reports fatigue. HEENT: No recent visual problems or hearing problems. Denied any sore throat. CARDIOVASCULAR: No chest pain, orthopnea, PND, no palpitations, no syncope. PULMONARY: Reports shortness of breath, reports occasional cough with white to yellow sputum. GASTROINTESTINAL: No diarrhea, no nausea, no vomiting, no abdominal pain. NEUROLOGICAL: No headaches, no weakness, no numbness. Active Medications Albuterol Sulfate (Albuterol Hfa Inhaler) 2 puff INHALATION RT-DAILY PRN PRN Reason: Wheezing Albuterol Sulfate (Albuterol Hfa Inhaler) 2 puff INHALATION RT-QID [facility] Apixaban (Apixaban 5 Mg Tab) 5 mg PO BID [facility]; Protocol Last Admin: 10/19/21 20:00 Dose: 5 mg Documented by: Ascorbic Acid (Ascorbic Acid 500 Mg Tab) 500 mg PO DAILY [facility] Last Admin: 10/19/21 10:10 Dose: Not Given Documented by: Budesonide/Formoterol Fumarate (Symbicort 160-4.5 Mcg Inhaler) 2 puff INHALATION RT-BID [facility] Last Admin: 10/19/21 20:44 Dose: 2 puff Documented by: Cholecalciferol (Cholecalciferol 25 Mcg (1000 Iu) Tablet) 25 mcg PO DAILY [facility] Last Admin: 10/19/21 10:10 Dose: Not Given Documented by: Cyanocobalamin (Cyanocobalamin 500 Mcg Tab) 1,000 mcg PO DAILY [facility] Last Admin: 10/19/21 10:10 Dose: Not Given Documented by: Doxycycline Monohydrate (Doxycycline 100 Mg Cap) 100 mg PO BID [facility]; Protocol Stop: 10/24/21 21:01 Last Admin: 10/19/21 20:01 Dose: 100 mg Documented by: Folic Acid (Folic Acid 1 Mg Tab) 0.5 mg PO DAILY [facility] Last Admin: 10/19/21 10:10 Dose: Not Given Documented by: Losartan Potassium (Losartan 25 Mg Tab) 12.5 mg PO DAILY [facility] Last Admin: 10/19/21 09:58 Dose: 12.5 mg Documented by: Metoprolol Tartrate (Metoprolol Tartrate 50 Mg Tab) 50 mg PO TID [facility] Last Admin: 10/19/21 20:01 Dose: 50 mg Documented by: Miscellaneous Information (Pneumonia Protocol Utilized 1 Each Misc) 1 each PO ONCE PRN PRN Reason: Per Protocol Montelukast Sodium (Montelukast 10 Mg Tab) 10 mg PO DAILY [facility] Last Admin: 10/19/21 10:01 Dose: 10 mg Documented by: Pantoprazole Sodium (Pantoprazole 40 Mg Tablet) 40 mg PO AC-BRKFST [facility] Last Admin: 10/19/21 05:48 Dose: 40 mg Documented by: Tiotropium [place] (Tiotropium 2.5 Mcg Inhaler) 2 puff INHALATION RT-DAILY [facility] Verapamil HCl (Verapamil 40 Mg Tab) 40 mg PO BID [facility] Last Admin: 10/19/21 20:01 Dose: 40 mg Documented by: PHYSICAL EXAMINATION: GENERAL: The patient is alert and oriented x3, not in any acute distress. Well developed, well nourished. HEENT: Pupils are round and equally reacting to light. EOMI. No scleral icterus. No conjunctival pallor. Normocephalic, atraumatic. No pharyngeal erythema. No thyromegaly. CARDIOVASCULAR: S1 and S2 present. Irregular rate and rhythm, tachycardic. PULMONARY: diminished breath sounds bilaterally with some scattered rhonchi and some wheezing noted. ABDOMEN: Soft, nontender, nondistended, normoactive bowel sounds. No palpable organomegaly. MUSCULOSKELETAL: No joint swelling or deformity. EXTREMITIES: No cyanosis, clubbing, or pedal edema. NEUROLOGICAL: Gross neurological examination did not reveal any focal deficits. SKIN: No rashes. Assessment -Shortness of breath with possible right lower lobe pneumonia. Patient with self reported recent Covid infection, COVID currently showing negative this admission. She has been on an oral steroid taper outpatient and vitamins. Procalcitonin is negative at 0.09, chest CT showing atelectasis/consolidation and cannot exclude neoplasm. Patient reports history of known nodule from CT completed in August of this year. On oral antibiotics. -Atrial fibrillation with rapid ventricular rate, possibly chronic/paroxysmal -Leukoyctosis secondary to above -Hyponatremia from poor oral intake, improving -Acute kidney injury mostly prerenal, improved -New diagnosis diabetes mellitus with hyperglycemia, A1C 6.6. -Elevated liver enzymes, normalized -Elevated inflammatory markers -Hypertension -History of hyperlipidemia -History of gastroesophageal -Never smoker -Obesity -GI Prophylaxis -DVT Prophylaxis Eliquis Plan Patient continued on eliquis Cardiology following as patient was afib with RVR and briefly on cardizem drip. Metoprolol increased Continue antibiotics in the form of doxycycline as per pulmonary Continue novolog Pulmonary consult, Cardiology consult PT/OT consultation Continue all other supportive care The impression and plan of care has been dictated by Kate Campbell, Nurse Practitioner as directed. Dr. Malou LEWIS I have performed a history and physical examination and medical decision making of this patient, discussed the same with the dictator, and agree with the dictators assessment and plan as written, documented as a scribe. Based on total visit time, I have performed more than 50% of this visit. Objective - Vital Signs Vital signs: Vital Signs Temp 98.0 F 10/19/21 04:00 Pulse 107 H 10/19/21 04:00 Resp 18 10/19/21 04:00 BP 128/65 10/19/21 04:00 Pulse Ox 95 10/19/21 05:32 Intake & Output 10/18/21 10/19/21 10/19/21 18:59 06:59 18:59 Intake Total 236 360 Balance 236 360 Intake: Oral 236 360 Other: Voiding Method Toilet # Voids 1 2 - Labs CBC & Chem 7: 10/19/21 08:18 10/19/21 08:18 Labs: Abnormal Lab Results - Last 24 Hours (Table) 10/18/21 10/18/21 10/19/21 Range/Units 11:40 18:16 08:18 Sodium 135 L (137-145) mmol/L BUN 26 H (7-17) mg/dL Creatinine 1.17 H (0.52-1.04) mg/dL POC Glucose (mg/dL) 144 H 111 H (75-99) mg/dL Microbiology - Last 24 Hours (Table) 10/16/21 16:00 Blood Culture - Preliminary Blood No Growth after 48 hours 10/16/21 15:25 Blood Culture Gram Stain - Final Blood Blood Culture - Final Coagulase Negative Staph Coagulase Negative Staph#2 10/16/21 21:24 Gram Stain - Preliminary Sputum Sputum Culture - Preliminary
[2021-10-20] MEDS: PANTOPRAZOLE 40 MG TABLET PO SCH (05:28)
[2021-10-20] MEDS: SYMBICORT 160-4.5 MCG INHALER INHALATION SCH (07:49)
[2021-10-20] MEDS: ALBUTEROL HFA INHALER INHALATION SCH ×3 (07:49→15:08)
[2021-10-20] MEDS ORDERED: TIOTROPIUM 2.5 MCG INHALER INHALATION SCH (08:00)
[2021-10-20] MEDS: CHOLECALCIFEROL 25 MCG (1000 IU) TABLET PO SCH (09:28)
[2021-10-20] MEDS: LOSARTAN 25 MG TAB PO SCH (09:28)
[2021-10-20] MEDS: FOLIC ACID 1 MG TAB PO SCH (09:28)
[2021-10-20] MEDS: DOXYCYCLINE 100 MG CAP PO SCH (09:28)
[2021-10-20] MEDS: CYANOCOBALAMIN 500 MCG TAB PO SCH (09:28)
[2021-10-20] MEDS: ASCORBIC ACID 500 MG TAB PO SCH (09:28)
[2021-10-20] MEDS: APIXABAN 5 MG TAB PO SCH (09:29)
[2021-10-20] MEDS: VERAPAMIL 40 MG TAB PO SCH (09:29)
[2021-10-20] MEDS: MONTELUKAST 10 MG TAB PO SCH (09:29)
[2021-10-20] MEDS: METOPROLOL TARTRATE 50 MG TAB PO SCH ×2 (09:29→15:30)
[2021-10-20 10:37] VITALS: BP 143/75; PULSE 106; RESP 18; TEMP 97
--- NOTE | 2021-10-20 11:00 | P.PN ---
Subjective This is a 81 year old female with a past medical history of hypertension, dyslipidemia, GERD, recent Covid-19 infection 10/10/21. 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 We are consulted for new onset Atrial fibrillation. Patient presents to the emergency department with complaints of cough, abdominal pain, and increasing shortness of breath. She initially went to an outpatient clinic and was told to come to the emergency department. She has been diagnosed with bilateral pneumonia. Her Covid-19 test was negative. Her symptoms have improved since presentation to the ER. She does endorse occasionally palpitations. She denies any fever, chills, nightsweats, chest pain, lightheadedness, dizziness, syncope or near syncope. No symptoms of orthopnea, PND. She denies history of CAD, NM, Stroke, or diabetes. She denies any family history of cardiac disease. She denies tobacco or alcohol use. 10/20/2021 Patient seen and examined at bedside, no acute distress. Her breathing has improved. She denies any chest pain. Patients metoprolol was increased yesterday. Continues to be in atrial fibrillation. Her heart rates 70s-low 100s. episode of RVR this morning with HR 130s. Echocardiogram revealed an EF of 5055 percent, mild MR, mild TR, mild pulmonary hypertension. She's currently maintained on Eliquis 5 mg twice a day, losartan 12.5 mg daily, metoprolol tartrate 50 mg TID, verapamil 40 mg BID PHYSICAL EXAMINATION Vitals reviewed CONSTITUTIONAL: No apparent distress. HEENT: Neck Supple. No JVD. No carotid bruit. CHEST EXAMINATION: Lungs are diminished in bases to auscultation bilaterally. No chest wall tenderness is noted on palpation or with deep breathing. HEART EXAMINATION: Irregular rate and rhythm. S1, S2 heard. No murmurs, gallops or rub. ABDOMEN: Soft, nontender. Positive bowel sounds. EXTREMITIES: 2+ peripheral pulses, no lower extremity edema and no calf tenderness. SKIN: warm, dry NEUROLOGIC EXAMINATION: Patient is awake, alert and oriented x3. ASSESSMENT New onset paroxysmal atrial fibrillation with RVR -[id number] score 4 Pneumonia Leukocytosis Acute kidney injury, improved Hypertension Dyslipidemia GERD Recent Covid-19 infection 10/10/21. PLAN Increase Verapamil 40mg TID Continue metoprolol tartrate 50 TID Continue Eliquis 5mg BID, consult case management for coverage, per case management this medication is covered with copay $40.50/month Continue Losartan 12.5mg daily From cardiology perspective, patient stable and discharged home on current medication. Follow up outpatient with Dr. Arias. Nurse practitioner note has been reviewed by physician. Signing provider agrees with the documented findings, assessment, and plan of care. Objective - Vital Signs Vital signs: Vital Signs Temp 97.0 F L 10/20/21 08:00 Pulse 106 H 10/20/21 08:00 Resp 18 10/20/21 08:00 BP 143/75 10/20/21 08:00 Pulse Ox 95 10/20/21 08:00 Intake & Output 10/19/21 10/20/21 10/20/21 18:59 06:59 18:59 Intake Total 360 240 Balance 360 240 Intake: Oral 360 240 Other: Voiding Method Toilet Toilet # Voids 3 1 - Labs CBC & Chem 7: 10/19/21 08:18 10/19/21 08:18 Labs: Microbiology - Last 24 Hours (Table) 10/16/21 21:24 Gram Stain - Final Sputum Sputum Culture - Final 10/16/21 16:00 Blood Culture - Preliminary Blood No Growth after 72 hours
[2021-10-20] MEDS ORDERED: VERAPAMIL 40 MG TAB PO SCH (16:00)
--- NOTE | 2021-10-21 15:12 | P.DS ---
Providers Date of admission: 10/16/21 15:48 Expected date of discharge: 10/20/21 Attending physician: Gamaliel Padilla Consults: 10/16/21 15:46 Consult Physician Routine Consulting Provider: Benjie Villarreal Consult Reason/Comments: Pneumonia Do you want consulting provider notified?: Yes 10/17/21 11:53 Consult Physician Stat Consulting Provider: Pankaj Arias Consult Reason/Comments: afib Do you want consulting provider notified?: Yes Primary care physician: Stated None Hospital Course: Final diagnosis -Shortness of breath with possible right lower lobe pneumonia. Patient with self reported recent Covid infection, COVID currently showing negative this admission. She has been on an oral steroid taper outpatient and vitamins. Procalcitonin is negative at 0.09, chest CT showing atelectasis/consolidation and cannot exclude neoplasm. Patient reports history of known nodule from CT completed in August of this year. On oral antibiotics. -Atrial fibrillation with rapid ventricular rate, possibly chronic/paroxysmal -Leukoyctosis secondary to above -Hyponatremia from poor oral intake, improving -Acute kidney injury mostly prerenal, improved -New diagnosis diabetes mellitus with hyperglycemia, A1C 6.6. -Elevated liver enzymes, normalized -Elevated inflammatory markers -Hypertension -History of hyperlipidemia -History of gastroesophageal reflux disease -Never smoker -Obesity -GI Prophylaxis -DVT Prophylaxis Eliquis Discharge disposition Patient is being discharged in a stable condition with guarded prognosis to home. Patient will follow-up with Dr. Price in the outpatient setting upon discharge. Patient has no pcp and was given a list and chose Dr. Price. Patient was referred to Dr. Britton. Patient is to follow up with Dr. Arias in one week. Total time taken is greater than 35 minutes. Hospital course This is an 81-year-old female presents to the emergency room with complaints of increased shortness of breath. is at the bedside. Patient has symptoms ongoing for the last couple weeks, she was tested positive for Covid last Saturday with interval progression of symptoms. Patient was started on an oral steroid taper with last doing being today from the walk in clinic. Chest x-ray on admission shows right lower lobe patchy density may reflect developing infiltrate. Follow-up chest x-ray in the morning shows slight improvement of infiltrate, COPD. Patient followed with Dr Kimberlee Holbrook in the primary office, states she has not been in since August and at that time states she had a chest xray and CT done which showed a nodule which there has been no further work up. Patient states she is a never smoker, no alcohol use. She denies history of heart failure, states she does have a heart arrythmia, denies history of atrial fibrillation. Patient is somewhat of a poor historian. Patient is currently working in the school setting. White count 14.1 admission, sodium 129, BUN 24, creatinine 1.17, glucose 152, elevated liver enzymes. Covid NOT detected this admission. Chronic medical conditions include GERD, hyperlipidemia, hypertension, racing heart. Patient is a never smoker. Patient currently afebrile, heart rate is slightly elevated at 93 with an episode of tachycardia 118, 95% on room air. Patient was admitted to the hospital with consults placed to pulmonary services. Patient received a 1 Liter fluid bolus, received a dose of IV azithromycin, IV Rocephin, also one-time dose of oral dexamethasone. -EKG requested which shows atrial fibrillation. Home medication includes bisoprolol, not on any anticoagulation. Consultation requested to cardiology for further evaluation. -Chest CT completed today shows bilateral lower lobe atelectasis/consolidation when the left side as described above. This could be related to pneumonia or recent aspiration of her underlying lesion cannot be excluded. Recommend follow-up advised in 6-8 weeks. 10/18/2021 Patient evaluated in the emergency room. Underwent evaluation by cardiology and has been started on eliquis for atrial fibrillation. There is still question whether this is new onset. Today during evaluation heart rate was in the 120s, which came down to 90s after morning medications. Cardiology has started patient on losartan, Lopressor, verapamil. Additionally she continues on oral doxycycline per pulmonary, symbicort, duonebs. White count today is 15.76, hemoglobin 11.5, sodium 134. TSH is low normal at 0.519. Inflammatory markers are elevated. Liver enzymes have returned to normal today. Creatinine today 1.2. A1c was found to be 6.6 which is consistent with diabetes mellitus, patient is currently receiving NovoLog sliding scale. -Echocardiogram showing EF of 50-55% with mild pulmonary hypertension, mild aortic valve sclerosis, mild MR, mild TR. 10/19/2021 Patient is seen in follow up this morning and has been transferred to selective unit for close monitoring as patient went into atrial fibrillation with RVR and placed on cardizem drip. Patient is anticoagulated with Eliquis and will continue. Cardiology following and has resumed medications. Patient also continues on steroids, vitamins and doxycycline. Pulmonary following as well. 10/20/2021 Patient is seen today in follow up and has been cleared by cardiology for discharge and has increased the verapamil to TID and will follow with DR. Arias closely in one week. Patient is on room air and denies any shortness of breath and is requesting to go home. Patient has no pcp and resources for multiple primary care providers in the area. Patient chose Dr. Price and is instructed to follow up with her to establish. We initially provided referral and resources to Dr. Britton and patient chose her own. Resources still provided. Currently no reports of chest pain, shortness of breath, or palpitations. Patient is afebrile. No reports of nausea or vomiting and patient is tolerating diet. Patient will be discharged home today. PHYSICAL EXAMINATION: GENERAL: The patient is alert and oriented x4, Well developed, well nourished. HEENT: Pupils are round and equally reacting to light. EOMI. no scleral icterus. No conjunctival pallor. Normocephalic, atraumatic. No pharyngeal erythema. No thyromegaly. CARDIOVASCULAR: S1 and S2 muffled PULMONARY: diminished breath sounds bilaterally with no wheezing and some rhonchi noted. ABDOMEN: soft. Nontender on exam. non-distended, normoactive bowel sounds. No palpable organomegaly. MUSCULOSKELETAL: No joint swelling or deformity. EXTREMITIES: No cyanosis, clubbing, or pedal edema. NEUROLOGICAL: Gross neurological examination did not reveal any focal deficits. SKIN: No rashes. Please refer to medication reconciliation sheet for a list of medications. The impression and plan of care has been dictated by Kate Campbell, Nurse Practitioner as directed. Dr. Malou MD I have performed a history and examination and MDM of this patient, discussed the same with the dictator, and agree with the dictator's assessment and plan as written ,documented as a scribe. Based on total visit time, I have performed more than 50% of the visit. Patient Condition at Discharge: Fair Plan - Discharge Summary Discharge Rx Participant: No New Discharge Prescriptions: New Losartan [Cozaar] 12.5 mg PO DAILY 30 Days #30 tab Budesonide-Formot 160-4.5 Mcg [Symbicort 160-4.5 Mcg Inhaler] 2 puff INHALATION RT-BID 30 Days #1 gm Apixaban [Eliquis] 5 mg PO BID 30 Days #60 tab Verapamil [Isoptin] 40 mg PO TID 30 Days #90 tab Metoprolol Tartrate [Lopressor] 50 mg PO TID 30 Days #90 tab Tiotropium 2.5 Mcg/Puff [Spiriva Respimat 2.5 Mcg] 2 puff INHALATION RT-DAILY 30 Days #1 each Doxycycline [Vibramycin] 100 mg PO BID 5 Days #10 cap Continue Simvastatin [Zocor] 40 mg PO DAILY Omeprazole [PriLOSEC] 40 mg PO DAILY Cholecalciferol [Vitamin D3 (25 Mcg = 1000 Iu)] 1,000 unit PO DAILY Folic Acid 0.4 mg PO DAILY Cyanocobalamin (Vitamin B-12) [Vitamin B-12] 1,000 mcg PO DAILY Magnesium Oxide [Cervantes] 500 mg PO DAILY Ascorbic Acid [Vitamin C] 500 mg PO DAILY flaxseed oiL [Nuevo-3 Flaxseed Oil] 1,000 mg PO DAILY Nuevo-3 Fatty Acids/Fish Oil [Fish Oil 1,000 mg Softgel] 1 cap PO DAILY Healthy Eyes Vitamin 1 tab PO DAILY Albuterol Sulfate [Proventil Hfa] 1 puff INHALATION RT-DAILY PRN PRN Reason: Wheezing Montelukast [Singulair] 10 mg PO DAILY Vitamin C/Biotin [Hair, Skin and Nails Chew] 1 tab PO DAILY Calcium Carbonate [Tums] 500 mg PO DAILY Discontinued Spironolactone 50 mg PO DAILY Garlic 1 tab PO DAILY predniSONE [Deltasone] 20 mg PO DAILY Bisoprolol Fumarate [Zebeta] 10 mg PO BID Discharge Medication List Omeprazole [PriLOSEC] 40 mg PO DAILY 11/07/14 [History] Simvastatin [Zocor] 40 mg PO DAILY 11/07/14 [History] Ascorbic Acid [Vitamin C] 500 mg PO DAILY 11/12/17 [History] Cholecalciferol [Vitamin D3 (25 Mcg = 1000 Iu)] 1,000 unit PO DAILY 11/12/17 [History] Cyanocobalamin (Vitamin B-12) [Vitamin B-12] 1,000 mcg PO DAILY 11/12/17 [History] Folic Acid 0.4 mg PO DAILY 11/12/17 [History] Healthy Eyes Vitamin 1 tab PO DAILY 11/12/17 [History] Magnesium Oxide [Cervantes] 500 mg PO DAILY 11/12/17 [History] Nuevo-3 Fatty Acids/Fish Oil [Fish Oil 1,000 mg Softgel] 1 cap PO DAILY 11/12/17 [History] flaxseed oiL [Nuevo-3 Flaxseed Oil] 1,000 mg PO DAILY 11/12/17 [History] Albuterol Sulfate [Proventil Hfa] 1 puff INHALATION RT-DAILY PRN 10/16/21 [ History] Calcium Carbonate [Tums] 500 mg PO DAILY 10/16/21 [History] Montelukast [Singulair] 10 mg PO DAILY 10/16/21 [History] Vitamin C/Biotin [Hair, Skin and Nails Chew] 1 tab PO DAILY 10/16/21 [History] Apixaban [Eliquis] 5 mg PO BID 30 Days #60 tab 10/18/21 [Rx] Budesonide-Formot 160-4.5 Mcg [Symbicort 160-4.5 Mcg Inhaler] 2 puff INHALATION RT-BID 30 Days #1 gm 10/20/21 [Rx] Doxycycline [Vibramycin] 100 mg PO BID 5 Days #10 cap 10/20/21 [Rx] Losartan [Cozaar] 12.5 mg PO DAILY 30 Days #30 tab 10/20/21 [Rx] Metoprolol Tartrate [Lopressor] 50 mg PO TID 30 Days #90 tab 10/20/21 [Rx] Tiotropium 2.5 Mcg/Puff [Spiriva Respimat 2.5 Mcg] 2 puff INHALATION RT-DAILY 30 Days #1 each 10/20/21 [Rx] Verapamil [Isoptin] 40 mg PO TID 30 Days #90 tab 10/20/21 [Rx] Follow up Appointment(s)/Referral(s): Pankaj Arias MD [STAFF PHYSICIAN] - 11/06/21 3:00 pm () Lakia Price MD [STAFF PHYSICIAN] - 1 Week (Patient needs to call and set up appointment. ) Patient Instructions/Handouts: Apixaban (By mouth), A-fib (Atrial Fibrillation) (ED), COVID-19 (Coronavirus Disease 2019) (ED) Activity/Diet/Wound Care/Special Instructions: Gianfranco is covered - $40.50 copay - filled at [facility] Patient has a list of local PCP and is going to decide on who she would like to follow up with on D/c and would like appt made at d/c. Activity Limited until follow-up Follow-up with primary care provider on discharge and establish Follow-up pulmonary outpatient Continue taking medications as prescribed Follow-up with cardiology Continue heart healthy diet Continue using incentive spirometer at least 10 times every hour while awake Discharge Disposition: HOME SELF-CARE
== END 2021-10-20 15:41 | disposition home or self-care (01) | DRG 194 ==
LOC: EC 14:18 → 4SSUR 15:48 → 3SCARD 10-18 04:16 → 4SSUR 10-18 15:05 → 3SCARD 10-18 18:36
PROVIDERS: ADMIT Hospitalist; ATTEND Hospitalist
DX: J18.9 Pneumonia, unspecified organism (principal); E87.1 Hypo-osmolality and hyponatremia; N17.9 Acute kidney failure, unspecified; J44.0 Chronic obstructive pulmonary disease with (acute) lower respiratory infection; J98.11 Atelectasis; I27.20 Pulmonary hypertension, unspecified; E11.65 Type 2 diabetes mellitus with hyperglycemia; I48.0 Paroxysmal atrial fibrillation; Z20.822 Contact with and (suspected) exposure to COVID-19; I08.3 Combined rheumatic disorders of mitral, aortic and tricuspid valves; I10 Essential (primary) hypertension; K21.9 Gastro-esophageal reflux disease without esophagitis; E78.5 Hyperlipidemia, unspecified; E66.9 Obesity, unspecified; Z68.36 Body mass index [BMI] 36.0-36.9, adult; R74.01 Elevation of levels of liver transaminase levels; R91.1 Solitary pulmonary nodule; Z79.899 Other long term (current) drug therapy; Z86.16 Personal history of COVID-19; Z87.2 Personal history of diseases of the skin and subcutaneous tissue; Z87.42 Personal history of other diseases of the female genital tract; Z98.890 Other specified postprocedural states; Z88.4 Allergy status to anesthetic agent; Z80.6 Family history of leukemia
CPT/HCPCS: 36415; 71046; 71250; 80048; 80053; 83036; 83605; 83615; 84145; 84443; 85025; 85610; 85730; 86140; 87040; 87070; 87205; 87635; 93005; 93306; 94640; 94760; 96365; 96366; 96367; 96375; 99285

== ENCOUNTER 2021-12-06 05:45 | Day surgery (SDC) | payer MEDICARE ==
[2021-12-06] MEDS ORDERED: SODIUM CHLORIDE 0.9% 1,000 ML IV SCH (06:10)
[2021-12-06] MEDS ORDERED: LACTATED RINGERS 1,000 ML IV SCH (06:10)
[2021-12-06 06:22] VITALS: TEMP 98.3
[2021-12-06 07:02] LABS: Calcium 9.1 mg/dL (8.4-10.2); Potassium 4.1 mmol/L (3.5-5.1)
[2021-12-06] MEDS ORDERED: PROPOFOL 10 MG/ML 20 ML VIAL IV ONE (07:33)
[2021-12-06] MEDS ORDERED: LIDOCAINE 2% INJ 20 MG/ML (2 ML VIAL) ONE (07:33)
[2021-12-06 08:15] VITALS: RESP 18
--- NOTE | 2021-12-06 08:38 | PCN ---
PROCEDURE NOTE ELECTRICAL CARDIOVERSION REPORT: DATE OF SERVICE: 12/06/2021 PROCEDURE: Electrical cardioversion. INDICATION: Persistent atrial fibrillation. CLINICAL INFORMATION: Mrs. Kathy Gil is an 81-year-old lady with history of hypertension, hyperlipidemia, bronchial asthma and relatively recent onset atrial fibrillation. She was hospitalized with pneumonia in [facility]. After achieving rate control with multiple agents, she was brought in for electrical cardioversion after due discussion regarding risks, benefits and options. PROCEDURE NOTE: Under the influence of [id number]-gulfyd intravenous anesthetic with the attendance of the anesthesiologist, initially a 200-joule shock was delivered with anterior and posterior patches. Patient remained in atrial fibrillation and the electrical cardioversion was unsuccessful. A repeat shock also of 200 joules was given and patient remained in atrial fibrillation with controlled ventricular rate. This was an unsuccessful electrical cardioversion. Details were discussed with the patient and her . She remains hemodynamically stable and neurologically intact. She will be discharged later on today and we will pursue rate control and anticoagulation. She will be discharged later on today if she remains stable. MMODL / IJN: [id number] /
[2021-12-06] MEDS ORDERED: APIXABAN 5 MG TAB PO SCH (09:00)
[2021-12-06 09:29] VITALS: BP 147/64; PULSE 78
== END 2021-12-06 09:52 | disposition home or self-care (01) ==
LOC: CATHCVL 05:45
PROVIDERS: ATTEND Internal Medicine Interventional Cardiology
DX: I48.19 Other persistent atrial fibrillation (principal); I10 Essential (primary) hypertension; E78.5 Hyperlipidemia, unspecified; Z20.822 Contact with and (suspected) exposure to COVID-19; Z87.01 Personal history of pneumonia (recurrent); J45.20 Mild intermittent asthma, uncomplicated; E78.00 Pure hypercholesterolemia, unspecified; Z79.51 Long term (current) use of inhaled steroids; Z79.01 Long term (current) use of anticoagulants; Z79.899 Other long term (current) drug therapy
CPT/HCPCS: 92960; 80048; 87635; J2704; J2001

== ENCOUNTER → 2023-05-29 | Outpatient (CLI) | payer MEDICARE ==
[2023-05-29 17:22] LABS: Basophils # (A) 0.06 X 10*3/uL (0.00-0.10); Basophils % (A) 0.9 %; Eosinophils # (A) 0.71 X 10*3/uL (0.04-0.35); Eosinophils % (A) 10.7 %; HCT 39.1 % (37.2-46.3); Lymphocytes # (A) 2.12 X 10*3/uL (0.90-5.00); MCH 32.6 pg (27.0-32.0); MCHC 33.2 g/dL (32.0-37.0); Mean Platelet Volume 12.8 FL (9.5-12.2); Monocytes # (A) 0.66 X 10*3/uL (0.20-1.00); NRBC Per 100 WBC 0 X 10*3/uL (0.00-0.01); Neutrophils # (A) 3.06 X 10*3/uL (1.80-7.70); Neutrophils % (A) 46.1 %; Platelet Count 140 X 10*3/uL (140-440); RBC 3.99 X 10*6/uL (4.10-5.20); RDW 13.2 % (11.5-14.5); WBC 6.63 X 10*3/uL (4.50-10.00)
== END | disposition home or self-care (01) ==
LOC: LABWHC1 10:56
PROVIDERS: ATTEND Internal Medicine Interventional Cardiology
DX: I48.91 Unspecified atrial fibrillation (principal)
CPT/HCPCS: 36415; 85025

== ENCOUNTER → 2023-12-23 | Outpatient (CLI) | payer MEDICARE ==
[2023-12-23 08:56] LABS: African American GFR (CKD) 54 (>60 ml/min/1.73 sqM); Blood Urea Nitrogen 20 mg/dL (7-17); Non-African American GFR(CKD) 47 (>60 ml/min/1.73 sqM)
--- NOTE | 2023-12-23 12:46 | CT ---
EXAMINATION TYPE: CT brain w con DATE OF EXAM: 12/23/2023 COMPARISON: None INDICATION: memory loss and headaches DLP: 1150.5 mGycm, Automated exposure control for dose reduction was used. CONTRAST: [address] of the brain is performed utilizing 3 mm thick sections through the posterior fossa and 3 mm thick sections through the remaining calvarium. Study is performed within 24 hours of arrival to the hosp ital. No abnormal hyperdensity is present to suggest an acute intracranial hemorrhage. No mass lesion is evident. No acute infarcts are evident. There is patchy to confluent periventricular white matter hypodensity, likely in the basis of chronic white matter ischemic changes. Ventricles and sulci are prominent for the patient age. Paranasal sinuses and mastoid air cells within the [id number] are clear. Hyperostosis frontalis internus, a normal variant, is present. No suspicious enhancement is evident. IMPRESSION: 1. Chronic appearing periventricular white matter ischemic changes with atrophy.
== END | disposition home or self-care (01) ==
LOC: RADCTMAIN 08:21
PROVIDERS: ATTEND Family Medicine
DX: I67.82 Cerebral ischemia (principal); R41.3 Other amnesia; G31.9 Degenerative disease of nervous system, unspecified
CPT/HCPCS: 82565; 84520; 70460; 36415; Q9967

== ENCOUNTER 2024-07-27 12:13 | Emergency (ER) | payer MEDICARE ==
--- NOTE | 2024-07-27 13:10 | XR ---
EXAMINATION TYPE: XR ribs LT w pa chest xray DATE OF EXAM: 07/27/2024 COMPARISON: NONE CLINICAL INDICATION: Female, 84 years old with history of fall, rib pain; TECHNIQUE: Frontal view of the chest and 5 views of the left ribs FINDINGS: Heart is prominent there is ectasia of the aorta with atherosclerotic change. Diffuse osteo penia and arthropathy of the AC joints. Degenerative change of the spine. Scoliosis of the spine. Vas cular calcifications. Subtle deformity of the anterolateral right left eighth rib. Linear changes at the lung bases most typical scarring or atelectasis. IMPRESSION: 1. Subtle deformity anterolateral left eighth rib. Hairline nondisplaced fracture of the differential diagnosis. Correlate with point tenderness. No evidence of pneumothorax. [facility], , 07/27/2024 1:07 PM
--- NOTE | 2024-07-27 13:21 | ED ---
Fall HPI - General Chief Complaint: Fall Stated Complaint: chest pain from a fall Time Seen by Provider: 07/27/24 12:26 Source: patient Mode of arrival: ambulatory - History of Present Illness Initial Comments: 84-year-old female history of A-fib on Eliquis presenting to emergency room with for complaint of a fall and subsequent left-sided injury that occurred yesterday. Patient states that she was outside near her garden when she slipped on ice causing her to fall on the left side of her ribs. Patient denies hitting her head or loss of consciousness at the time of the event. She also denies presyncopal symptoms such as dizziness, lightheadedness or palpitations prior to the fall, states that she slipped. She denies other injuries. States that she has pain to the left side of her ribs that exacerbated on deep inspiration. - Related Data Home Medications Medication Instructions Recorded Confirmed Omeprazole [PriLOSEC] 20 mg PO QAM 11/07/14 12/05/21 Simvastatin [Zocor] 40 mg PO QAM 11/07/14 12/05/21 Cholecalciferol [Vitamin D3 (25 1,000 unit PO DAILY 11/12/17 12/05/21 Mcg = 1000 Iu)] Cyanocobalamin (Vitamin B-12) 1,000 mcg PO DAILY 11/12/17 12/05/21 [Vitamin B-12] Folic Acid 0.4 mg PO DAILY 11/12/17 12/05/21 Magnesium Oxide [Cervantes] 500 mg PO DAILY 11/12/17 12/05/21 Hurt-3 Fatty Acids/Fish Oil [Fish 1 cap PO DAILY 11/12/17 12/05/21 Oil 1,000 mg Softgel] Albuterol Sulfate [Proventil Hfa] 1 puff INHALATION RT-DAILY PRN 10/16/21 12/05/21 Calcium Carbonate [Tums] 500 mg PO DAILY 10/16/21 12/05/21 Montelukast [Singulair] 10 mg PO DAILY 10/16/21 12/05/21 Vitamin C/Biotin [Hair, Skin and 1 tab PO DAILY 10/16/21 12/05/21 Nails Chew] Amiodarone [Cordarone] 200 mg PO BID 12/05/21 12/05/21 C,E,Zinc,Copper 11/Pnvei9a/Lut 1 cap PO DAILY 12/05/21 12/05/21 [Ocuvite Adult 50 Plus Softgel] Losartan [Cozaar] 25 mg PO QAM 12/05/21 12/05/21 Neuriva 1 tab PO DAILY 12/05/21 Previous Rx's Medication Instructions Recorded Apixaban [Eliquis] 5 mg PO BID 30 Days #60 tab 10/18/21 Budesonide-Formot 160-4.5 Mcg 2 puff INHALATION RT-BID 30 Days 10/20/21 [Symbicort 160-4.5 Mcg Inhaler] #1 gm Metoprolol Tartrate [Lopressor] 50 mg PO TID 30 Days #90 tab 10/20/21 Tiotropium 2.5 Mcg/Puff [Spiriva 2 puff INHALATION RT-DAILY 30 Days 10/20/21 Respimat 2.5 Mcg] #1 each Allergies Allergy/AdvReac Type Severity Reaction Status Date / Time procaine [From Novocain] Allergy Anaphylaxis Verified 12/06/21 06:11 Review of Systems ROS Statement: Those systems with pertinent positive or pertinent negative responses have been documented in the HPI. ROS Other: All systems not noted in ROS Statement are negative. Past Medical History Past Medical History: Atrial Fibrillation, GERD/Reflux, Hyperlipidemia, Hypertension, Pneumonia Additional Past Medical History / Comment(s): SEE DR. RACHEL BROWNING CARDIOVASCULAR HISTORY. 10/16/21IP FOR PNEUMONIA. PATIENT STATES SHE TESTED POSITIVE FOR COVID ON 10/11/21, HAS RESIDUAL COUGH. Hx "racing heart" History of Any Multi-Drug Resistant Organisms: None Reported Past Surgical History: No Surgical Hx Reported Additional Past Surgical History / Comment(s): D&C, colonoscopies,rt breast biopsy Past Anesthesia/Blood Transfusion Reactions: Motion Sickness Past Psychological History: No Psychological Hx Reported Smoking Status: Never smoker Past Alcohol Use History: None Reported Past Drug Use History: None Reported - Past Family History Daughter(s) Family Medical History: Cancer Additional Family Medical History / Comment(s): leukemia General Exam Limitations: no limitations General appearance: alert, in no apparent distress Neck exam: Present: normal inspection. Absent: tenderness, meningismus, lymphadenopathy Respiratory exam: Present: normal lung sounds bilaterally, chest wall tenderness (anterior lower left to palpation and deep inspiration). Absent: respiratory distress, wheezes, rales, rhonchi, stridor Cardiovascular Exam: Present: regular rate, normal rhythm, normal heart sounds. Absent: systolic murmur, diastolic murmur, rubs, gallop, clicks GI/Abdominal exam: Present: soft, normal bowel sounds. Absent: distended, tenderness, guarding, rebound, rigid Extremities exam: Present: normal inspection, full ROM, normal capillary refill. Absent: tenderness, pedal edema, joint swelling, calf tenderness Back exam: Present: normal inspection Neurological exam: Present: alert, oriented X3, CN II-XII intact Course Vital Signs 07/27/24 07/27/24 12:17 14:01 Temperature 98.7 F 97.8 F Pulse Rate 66 72 Respiratory 20 16 Rate Blood Pressure 156/77 128/79 O2 Sat by Pulse 98 98 Oximetry Medical Decision Making - Medical Decision Making Was pt. sent in by a medical professional or institution ([employer] Ledezma, AIRCRAFT INSTRUMENT MECHANIC, urgent care, hospital, or penitentiary...) When possible be specific @ -No Did you speak to anyone other than the patient for history (EMS, parent, family, police, friend...)? What history was obtained from this source @ -No Did you review nursing and triage notes (agree or disagree)? Why? @ -I reviewed and agree with nursing and triage notes Were old charts reviewed (outside hosp., previous admission, EMS record, old EKG, old radiological studies, urgent care reports/EKG's, penitentiary records)? Report findings @ -No old charts were reviewed Differential Diagnosis (chest pain, altered mental status, abdominal pain women, abdominal pain men, vaginal bleeding, weakness, fever, dyspnea, syncope, headache, dizziness, GI bleed, back pain, seizure, CVA, palpatations, mental health, musculoskeletal)? @ -Differential Musculoskeletal Muscular strain, contusion, ligament sprain, fracture, arthritis, septic arthritis, bursitis, cellulitis, muscle spasm, nerve compression, DVT, arterial occlusion, herpes zoster, electrolyte abnormality, tumor.... This is not meant to be in all inclusive list EKG interpreted by me (3pts min.). @ -None X-rays interpreted by me (1pt min.). @ -X-ray of the PA chest with left ribs reveals a subtle deformity at the anterior lateral left eighth rib that is a hairline nondisplaced fracture. CT interpreted by me (1pt min.). @ -None done U/S interpreted by me (1pt. min.). @ -None done What testing was considered but not performed or refused? (CT, X-rays, U/S, labs)? Why? @ -None What meds were considered but not given or refused? Why? @ -None Did you discuss the management of the patient with other professionals (professionals i.e. DrCaroline, PA, AIRCRAFT INSTRUMENT MECHANIC, lab, RT, psych nurse, manager social services, juvenile officer, teacher, annual giving officer, caser shoe parts)? Give summary @ -No Was smoking cessation discussed for >3mins.? @ -No Was critical care preformed (if so, how long)? @ -No Were there social determinants of health that impacted care today? How? (Homelessness, low income, unemployed, alcoholism, drug addiction, transportation, low edu. Level, literacy, decrease access to med. care, assisted, rehab)? @ -No Was there de-escalation of care discussed even if they declined (Discuss DNR or withdrawal of care, Hospice)? DNR status @ -No What co-morbidities impacted this encounter? (DM, HTN, Smoking, COPD, CAD, Cancer, CVA, ARF, Chemo, Hep., AIDS, mental health diagnosis, sleep apnea, morbid obesity)? @ -None Was patient admitted / discharged? Hospital course, mention meds given and route, prescriptions, significant lab abnormalities, going to OR and other pertinent info. @ -Discharge. 84-year-old female presenting with fall and left-sided rib pain. On evaluation patient's lung sounds are equal bilaterally. There is tenderness to the anterior left chest on palpation with no overlying skin changes. She is offered pain medication and was declined. X-ray remarkable for a anterior lateral left eighth rib fracture. Patient is provided with an incentive spirometer and instructions on how to appropriately use device. Recommend that she continue supportive treatment at home and report back to emergency department for any new or worsening symptoms. Case discussed with Dr. Suarez Undiagnosed new problem with uncertain prognosis? @ -No Drug Therapy requiring intensive monitoring for toxicity (Heparin, Nitro, Insulin, Cardizem)? @ -No Were any procedures done? @ -No Diagnosis/symptom? @ -Rib fracture, fall Acute, or Chronic, or Acute on Chronic? @ -Acute Uncomplicated (without systemic symptoms) or Complicated (systemic symptoms)? @ -Uncomplicated Side effects of treatment? @ -No Exacerbation, Progression, or Severe Exacerbation? @ -No Poses a threat to life or bodily function? How? (Chest pain, USA, MS, pneumonia, PE, COPD, DKA, ARF, appy, cholecystitis, CVA, Diverticulitis, Homicidal, Suicidal, threat to staff... and all critical care pts) @ -No Disposition Clinical Impression: Left rib fracture Disposition: HOME SELF-CARE Condition: Good Instructions (If sedation given, give patient instructions): How to Use an Incentive Spirometer (ED), Rib Fracture (ED) Additional Instructions: Please return to the Emergency Department if symptoms worsen or any other concerns. Is patient prescribed a controlled substance at d/c from ED?: No Referrals: Kimberlee Holbrook DO [Primary Care Provider] - 1-2 days Time of Disposition: 13:34
[2024-07-27 14:02] VITALS: BP 128/79; PULSE 72; RESP 16; TEMP 97.8
== END 2024-07-27 14:02 | disposition home or self-care (01) ==
LOC: EC 12:13
DX: S22.32XA Fracture of one rib, left side, initial encounter for closed fracture (principal); Z88.8 Allergy status to other drugs, medicaments and biological substances; W00.0XXA Fall on same level due to ice and snow, initial encounter; Y92.017 Garden or yard in single-family (private) house as the place of occurrence of the external cause
CPT/HCPCS: 99283